=== PATIENT | female | born 1950 | race Caucasian/White ===

== ENCOUNTER 2016-02-07 09:15 | Outpatient (RCR) | payer MEDICARE, MEDICAID ==
--- OUTSIDE RECORDS SUMMARY | 2015-11-12 10:31 | XMS REPORT | Continuity of Care Document ---
Author Author [facility] Organization [facility] Address Unknown Phone Unavailable Care Team Providers Care School Counsellor Name Role Phone Coral Viveros PCP [phone] Source Comments Some departments are not documenting in the electronic medical record. If you do not see the information that you expected, contact Release of Information in the Health Information Management department at [phone] for further assistance in locating additional records.[facility] Active Allergies and Adverse Reactions No Known Allergies Current Medications Prescription Sig. Disp. Refills Start End Date Status Date metFORMIN (GLUCOPHAGE) Take 850 mg by mouth Active 850 mg tablet twice daily with meals. glipiZIDE (GLUCOTROL) 10 Take 10 mg by mouth twice Active mg tablet daily with meals. lisinopril/hydrochlorothi Take 1 Tab by mouth Active azide (ZESTORETIC) daily. 10/12.5 mg tablet 1 Tab tiotropium (SPIRIVA) 18 Inhale 18 mcg by mouth Active mcg capsule for inhaler daily. albuterol (VENTOLIN HFA, Inhale 2 Puffs by mouth Active PROAIR HFA) 90 every 4 hours as needed. mcg/actuation inhaler albuterol-ipratropium Inhale 3 mL solution as Active (DUO-NEB, DUO-VENT) 0.5 directed every 4 hours as mg-3 mg(2.5 mg base)/3 mL needed. nebulizer solution ferrous sulfate 325 mg Take 1 Tab by mouth twice 90 Tab 3 12/30/19 Active (65 mg iron) tablet daily. 13 docusate (COLACE) 100 mg Take 1 Cap by mouth twice 180 Cap 1 12/30/19 Active capsule daily. 13 ascorbic acid (VITAMIN-C) Take 1 Tab by mouth 90 Tab 1 12/30/19 Active 500 mg tablet daily. 13 MULTIVITAMIN PO Take 1 Tab by mouth Active daily. Active Problems Problem Noted Date Fatigue 08/26/2013 Diabetes mellitus, type II (HCC) 08/26/2013 Hypertension 01/01/2013 Anemia 12/28/2012 Diabetic foot ulcer (HCC) 12/05/2011 Diabetic neuropathy, type II diabetes mellitus (HCC) 12/05/2011 Tobacco dependence 12/05/2011 Edema of lower extremity 12/05/2011 Social History Tobacco Use Types Packs/Day Years Used Date Current Every Day Smoker Cigarettes 2 50 Tobacco Cessation: Ready to Quit: No Comments: Offered Nicotene patch--pt states she will think about it. Alcohol Use Drinks/Week oz/Week Comments No Last Filed Vital Signs Vital Sign Reading Time Taken Blood Pressure 167/72 08/28/2013 12:00 PM CDT Pulse 111 08/28/2013 12:00 PM CDT Temperature 36.9 C (98.4 F) 08/28/2013 11:46 AM CDT Respiratory Rate - - Height 1.473 m (4' 10") 08/26/2013 8:43 PM CDT Weight 70.308 kg (155 lb) 08/28/2013 2:21 AM CDT Body Mass Index 32.4 08/28/2013 2:21 AM CDT Oxygen Saturation 100% 08/28/2013 11:46 AM CDT Plan of Care Health Maintenance Due Date Last Done Comments Physical (Comprehensive) 1957 Exam Pertussis Vaccine 1961 Tetanus Vaccine 1967 Dilated Eye Exam 01/29/1968 Foot Exam 01/29/1968 Microalbumin 01/29/1968 Breast Cancer Screening 1990 Colorectal Cancer 01/29/2000 Screening Shingles Vaccine 2010 Hba1c 02/28/2014 08/28/2013, 12/28/2012, 12/06/2011 Additional history exists Osteoporosis Screening 2015 Prevnar/Pneumovax (#1) 2015 Influenza Vaccine 10/11/2015 Results from Last 3 Months Not on file
== END 2016-02-10 | disposition home or self-care (01) ==
LOC: WOUNDCARE 09:15
PROVIDERS: ATTEND Internal Medicine
DX: E11.621 Type 2 diabetes mellitus with foot ulcer (principal); L97.522 Non-pressure chronic ulcer of other part of left foot with fat layer exposed; L97.512 Non-pressure chronic ulcer of other part of right foot with fat layer exposed; L97.521 Non-pressure chronic ulcer of other part of left foot limited to breakdown of skin; Z72.0 Tobacco use
CPT/HCPCS: 11042; 15271; 15275; 29445; 87070; 87075; 87077; 87186; 87205; 99212; 99213

== ENCOUNTER 2016-02-12 20:06 | Inpatient (IN) | payer MEDICAID, MEDICARE ==
[~2016-02-12] VITALS: Ht 147.3 cm; Wt 62.1 kg
--- OUTSIDE RECORDS SUMMARY | 2016-02-12 20:10 | XMS REPORT | Continuity of Care Document ---
Author Author [facility] Organization [facility] Address Unknown Phone Unavailable Care Team Providers Care Title Abstractor Name Role Phone Coral Viveros PCP [phone] Source Comments Some departments are not documenting in the electronic medical record. If you do not see the information that you expected, contact Release of Information in the Health Information Management department at [phone] for further assistance in locating additional records.[facility] Active Allergies and Adverse Reactions No [...]
[2016-02-12 20:28] LABS: BASOPHILS % (AUTO) 0 % (0-10); EOSINOPHILS # (AUTO) 0.1 10^3/uL (0.0-0.3); EOSINOPHILS % (AUTO) 2 % (0-10); LYMPHOCYTES # (AUTO) 1.7 X 10^3 (1.0-4.0); LYMPHOCYTES % (AUTO) 30 % (12-44); MEAN CORPUSCULAR HEMOGLOBIN 28 PG (25-34); MEAN CORPUSCULAR HGB CONC 34 G/DL (32-36); MEAN CORPUSCULAR VOLUME 84 FL (80-99); MONOCYTES # (AUTO) 0.4 X 10^3 (0.0-1.0); MONOCYTES % (AUTO) 8 % (0-12); NEUTROPHILS # (AUTO) 3.5 X 10^3 (1.8-7.8); NEUTROPHILS % (AUTO) 61 % (42-75); PLATELET COUNT 215 10^3/uL (130-400); RED CELL DISTRIBUTION WIDTH 14.9 % (10.0-14.5); WHITE BLOOD COUNT 5.8 10^3/uL (4.3-11.0)
[2016-02-12 20:42] LABS: ALBUMIN 3.7 G/DL (3.2-4.5); BILIRUBIN,TOTAL 0.1 MG/DL (0.1-1.0); CREATININE SERUM 3.12 MG/DL (0.60-1.30); MAGNESIUM 1.8 MG/DL (1.8-2.4); POTASSIUM 4.7 MMOL/L (3.6-5.0); TOTAL PROTEIN 6.9 G/DL (6.4-8.2)
--- NOTE | 2016-02-12 20:45 | Diagnostic Imaging Report ---
INDICATION: Hypoglycemia COMPARISON: 10/30/2015 FINDINGS: Two views of the chest were obtained. Heart size is normal. The pulmonary vessels appear unremarkable. There is no pneumothorax, mediastinal widening or pleural fluid demonstrated. Some patchy scarring at the right lung base appears similar to the prior exam. There is, however, some increased density in medial right lung base which is new and may represent some infiltrate. The left lung appears clear. The osseous structures appear unremarkable. IMPRESSION: Suspected developing infiltrate at the right lung base superimposed on some chronic scarring. Short-term followup study is recommended. Dictated by: Dictated on workstation # [id number]
[2016-02-12] MEDS ORDERED: cefTRIAXone INJECTION 1,000 MG in NORMAL SALINE (BAXTER MINI) 50 ML IV ONE (21:15)
[2016-02-12] MEDS ORDERED: 1/2 NS IV SOLUTION 1,000 ML IV ONE (22:24)
[2016-02-12 22:25] VITALS: BP 125/72
[2016-02-12] MEDS: 1/2 NS IV SOLUTION 1,000 ML IV SCH (22:25)
[2016-02-12] MEDS ORDERED: AZITHROMYCIN 500 MG/NS 250 ML IVPB (1 X DOSE) IV NR ×2 (23:42)
[2016-02-13] MEDS ORDERED: RT-ALBUTEROL/IPRATROPIUM 3 ML (DUONEB) VIAL INH PRN (00:15)
[2016-02-13 00:27] VITALS: BP 124/60
[2016-02-13 01:58] VITALS: BP 116/56
[2016-02-13 01:58] LABS: BILIRUBIN,URINE NEGATIVE (NEGATIVE); KETONES,URINE NEGATIVE (NEGATIVE); LEUKOCYTE ESTERASE ,URINE 1+ (NEGATIVE); NITRITE,URINE NEGATIVE (NEGATIVE); PH,URINE 5 (5-9); PROTEIN,URINE 3+ (NEGATIVE); UROBILINOGEN,URINE NORMAL (NORMAL)
[2016-02-13] MEDS ORDERED: DEXTROSE 50% 50 ML (IMS) SYR ONE (03:15)
--- NOTE | 2016-02-13 03:24 | ED General ---
General Chief Complaint: Glucose Problems Stated Complaint: R SIDE PNEUMONIA,DIABETIC FOOT ULCERS,DEHYDRATION Nursing Triage Note: PT BROUGHT IN BY [facility] WITH C/O HYPOGLYCEMIA. PT WAS FOUND AT HOME WITH BS OF 44. 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 UPON ARRIVAL TO ED, PT IS A&0 X 4. Nursing Sepsis Screen: No Definite Risk Source of Information: Patient (VERY LIMITED HISTORIAN), EMS History of Present Illness Time Seen by Provider: 20:11 Initial Comments PT ARRIVES VIA EMS FROM HOME--PT APPARENTLY HAD SOME DECREASED LEVEL OF CONSCIOUSNESS PT WAS FOUND TO HAVE LOW BLOOD GLUCOSE AT HOME--WAS 61, THEN GIVEN ORAL GLUCOSE , RECHECK WAS 58, GIVEN ANOTHER ORAL GLUCOSE, RECHECK WAS 48 AND THEN 44, GIVEN 1 AMP D50. RECHECK WAS 301 PT STATES HER BLOOD SUGAR WAS "LOW" TODAY, SO DID NOT TAKE HER DIABETIC MEDICATION UNTIL THIS AFTERNOON. PT HAS NO IDEA WHAT HER BLOOD SUGAR READINGS WERE NO CHEST PAIN OR SHORTNESS OF BREATH NO NAUSEA/VOMITING/DIARRHEA/ABDOMINAL PAIN NO URINARY SYMPTOMS DENIES RECENT ILLNESS OR FEVER. PCP: CORINNE KRAUS Allergies and Home Medications Allergies Coded Allergies: No Known Drug Allergies (Unverified , 10/30/15) Constitutional: see HPI EENTM: no symptoms reported Respiratory: no symptoms reported Cardiovascular: no symptoms reported Gastrointestinal: no symptoms reported Genitourinary: no symptoms reported Musculoskeletal: no symptoms reported Skin: no symptoms reported Psychiatric/Neurological: No Symptoms Reported Hematologic/Lymphatic: No Symptoms Reported Immunological/Allergic: no symptoms reported Past Knrjbwa-Iocrdj-Opzzis Hx Patient Social History Alcohol Use: Denies Use Recreational Drug Use: No Smoking Status: Current Everyday Smoker (1 /2 PPD) Type Used: Cigarettes Recent Foreign Travel: No Contact w/Someone Who Travel: No Recent Infectious Disease Expo: No Recent Hopitalizations: No Physical Abuse Screen: No Sexual Abuse: No Seasonal Allergies Seasonal Allergies: No Surgeries HX Surgeries: No Respiratory Hx Respiratory Disorders: Yes (COPD) Respiratory Disorders: Pneumonia, COPD Cardiovascular Hx Cardiac Disorders: No Neurological Hx Neurological Disorders: No Reproductive System Sexually Transmitted Disease: No HIV/AIDS: No Genitourinary Hx Genitourinary Disorders: No Gastrointestinal Hx Gastrointestinal Disorders: No Musculoskeletal Hx Musculoskeletal Disorders: No Endocrine Hx Endocrine Disorders: Yes Endocrine Disorders: Diabetes, Non-Insulin dep HEENT HX ENT Disorders: No Loss of Vision: Denies Hearing Impairment: Denies Cancer Hx Cancer: No Psychosocial Hx Psychiatric Problems: Yes Behavioral Health Disorders: Depression Integumentary HX Skin/Integumentary Disorder: Yes (FOOT WOUNDS--IS BEING SEEN AT WOUND CARE ONCE A WEEK) Blood Transfusions Hx Blood Disorders: Yes (ANEMIA--S/P TRANSFUSIONS) Physical Exam Vital Signs Vital Sign - Last 12Hours 02/12/16 20:10 Temp 96.4 Pulse 98 Resp 20 B/P 113/49 Pulse Ox 97 O2 Delivery Room Air Capillary Refill : Less Than 3 Seconds General Appearance: No Apparent Distress WD/WN Other (SLOW MENTATION, POOR MEMORY. REEKS OF CIGARETTES. ) HEENT: PERRL/EOMI Other (ORAL MUCOSA DRY) Neck: Full Range of Motion Normal Inspection Non Tender Supple Respiratory: No Accessory Muscle Use No Respiratory Distress Wheezing ( EXPIRATORY WHEEZING RIGHT > LEFT) Cardiovascular: Regular Rate, Rhythm No Edema No JVD No Murmur Normal Peripheral Pulses Gastrointestinal: Normal Bowel Sounds No Organomegaly No Pulsatile Mass Non Tender Soft Back: No CVA Tenderness Extremity: Normal Range of Motion No Pedal Edema Other (ULCERS ON MEDIAL ASPECT OF RIGHT GREAT TOE AND PLANTAR ASPECT OF LEFT FOOT AT BASE OF FIRST MTP JOINT. ) Neurologic/Psychiatric: Alert Oriented x3 No Motor/Sensory Deficits rice cleaning machine tender II- XII Norm as Tested Other (MENTATION ABOVE) Skin: Normal Color Warm/Dry Other (FOOT ULCERS ABOVE) Progress/Results/Core Measures Results/Orders Lab Results Laboratory Tests Test 02/12/16 20:13 02/12/16 20:15 02/12/16 20:46 02/13/16 01:50 Range/Units Glucometer 175 H 97 70-110 MG/DL Alanine Aminotransferase (ALT/SGPT) 14 0-55 U/L Albumin 3.7 3.2-4.5 G/DL Alkaline Phosphatase 70 40-136 U/L Amylase Level 95 25-125 U/L Anion Gap 11 5-14 MMOL/L Aspartate Amino Transf (AST/SGOT) 19 5-34 U/L BUN/Creatinine Ratio 12 Basophils # (Auto) 0.0 0.0-0.1 10^3/uL Basophils (%) (Auto) 0 0-10 % Blood Urea Nitrogen 36 H 7-18 MG/DL Calcium Level 9.0 8.5-10.1 MG/DL Carbon Dioxide Level 15 L 21-32 MMOL/L Chloride Level 110 H 98-107 MMOL/L Creatinine 3.12 H 0.60-1.30 MG/DL Eosinophils # (Auto) 0.1 0.0-0.3 10^3/uL Eosinophils (%) (Auto) 2 0-10 % Estimat Glomerular Filtration Rate 15 Glucose Level 169 H 70-105 MG/DL Hematocrit 25 L 35-52 % Hemoglobin 8.4 L 11.5-16.0 G/DL Lipase 99 H 8-78 U/L Lymphocytes # (Auto) 1.7 1.0-4.0 X 10^3 Lymphocytes (%) (Auto) 30 12-44 % Magnesium Level 1.8 1.8-2.4 MG/DL Mean Corpuscular Hemoglobin 28 25-34 PG Mean Corpuscular Hemoglobin Concent 34 32-36 G/DL Mean Corpuscular Volume 84 80-99 FL Mean Platelet Volume 9.0 7.4-10.4 FL Monocytes # (Auto) 0.4 0.0-1.0 X 10^3 Monocytes (%) (Auto) 8 0-12 % Neutrophils # (Auto) 3.5 1.8-7.8 X 10^3 Neutrophils (%) (Auto) 61 42-75 % Platelet Count 215 130-400 10^3/uL Potassium Level 4.7 3.6-5.0 MMOL/L Red Blood Count 3.00 L 4.35-5.85 10^6/uL Red Cell Distribution Width 14.9 H 10.0-14.5 % Sodium Level 136 135-145 MMOL/L TSH [place] Testing 1.38 0.35-4.94 UIU/ML Total Bilirubin 0.1 0.1-1.0 MG/DL Total Protein 6.9 6.4-8.2 G/DL White Blood Count 5.8 4.3-11.0 10^3/uL Urine Bacteria FEW H /HPF Urine Bilirubin NEGATIVE NEGATIVE Urine Casts NONE /LPF Urine Clarity CLEAR Urine Color YELLOW Urine Crystals NONE /LPF Urine Culture Indicated YES Urine Glucose (UA) NEGATIVE NEGATIVE Urine Ketones NEGATIVE NEGATIVE Urine Leukocyte Esterase 1+ H NEGATIVE Urine Mucus NEGATIVE /LPF Urine Nitrite NEGATIVE NEGATIVE Urine Protein 3+ H NEGATIVE Urine RBC NONE /HPF Urine RBC (Auto) 1+ H NEGATIVE Urine Specific [place] 1.020 1.016-1.022 Urine Squamous Epithelial Cells 2-5 /HPF Urine Urobilinogen NORMAL NORMAL MG/DL Urine WBC 10-25 H /HPF Urine pH 5 5-9 My Orders Orders-JOSHKVNG Naik DO Accucheck Stat ONCE (02/12/16 20:19) Saline Lock/Iv-Start (02/12/16 20:19) Amylase (02/12/16 20:19) Cbc With Automated Diff (02/12/16 20:19) Comprehensive Metabolic Panel (02/12/16 20:19) Lipase (02/12/16 20:19) Magnesium (02/12/16 20:19) Thyroid Analyzer (02/12/16 20:19) Chest Pa/Lat (2 View) (02/12/16 20:19) Accucheck Stat ONCE (02/12/16 20:44) Ceftriaxone Injection (Rocephin Injectio (02/12/16 21:15) Medications Given in ED Current Medications Medications Dose Ordered Sig/Savi Route Start Time Stop Time Status Last Admin Dose Admin Ceftriaxone Sodium/Sodium Chloride 50 ml @ 100 mls/hr ONCE ONCE IV 02/12/16 21:15 02/12/16 21:44 DC 02/12/16 21:42 100 MLS/HR Vital Signs/I&O Vital Sign - Last 12Hours 02/12/16 02/12/16 02/12/16 02/12/16 20:10 22:08 22:25 22:25 Temp 96.4 96.4 96.2 Pulse 98 95 90 Resp 20 16 22 B/P 113/49 125/72 Pulse Ox 97 97 100 O2 Delivery Room Air Room Air Room Air Room Air 02/12/16 02/12/16 02/13/16 02/13/16 23:40 23:40 00:11 00:27 Temp 97.8 Pulse 84 84 Resp 20 B/P 124/60 Pulse Ox 97 97 96 O2 Delivery Room Air Room Air 02/13/16 02/13/16 01:00 01:58 Temp 97.0 Pulse 83 88 Resp 20 B/P 116/56 Pulse Ox 96 O2 Delivery Room Air Blood Pressure Mean: 76 Point of Care Testing Finger Stick Blood Glucose: 97 Diagnostic Imaging Comments CXR--INFILTRATE RIGHT BASE/MID LUNG--PER RADIOLOGIST REPORT Reviewed: Reviewed by Me Departure Communication Progress Notes 2057--SPOKE WITH DR. CADENA, ACCEPTS PT FOR ADMIT. Impression Impression: Primary Impression: Hypoglycemia associated with diabetes Additional Impressions: RLL pneumonia Acute on chronic renal failure Chronic anemia UTI (urinary tract infection) Disposition: ADMITTED INPATIENT Condition: Improved Decision to Admit Reason: Admit from ER (General) Decision to Admit/Date: Feb 12, 2016 Time/Decision to Admit Time: 21:00 Departure-Patient Inst. Referrals: JACLYN KAPADIA DO (PCP) Primary Care Physician KVNG MORENO DO Feb 13, 2016 03:24
[2016-02-13 05:15] VITALS: BP 143/65
[2016-02-13 05:49] LABS: BASOPHILS % (AUTO) 0 % (0-10); EOSINOPHILS # (AUTO) 0.1 10^3/uL (0.0-0.3); EOSINOPHILS % (AUTO) 1 % (0-10); LYMPHOCYTES # (AUTO) 1.3 X 10^3 (1.0-4.0); LYMPHOCYTES % (AUTO) 27 % (12-44); MEAN CORPUSCULAR HEMOGLOBIN 27 PG (25-34); MEAN CORPUSCULAR HGB CONC 33 G/DL (32-36); MEAN CORPUSCULAR VOLUME 84 FL (80-99); MEAN PLATELET VOLUME 9.2 FL (7.4-10.4); MONOCYTES # (AUTO) 0.3 X 10^3 (0.0-1.0); MONOCYTES % (AUTO) 7 % (0-12); NEUTROPHILS % (AUTO) 64 % (42-75); PLATELET COUNT 197 10^3/uL (130-400); RED BLOOD COUNT 2.78 10^6/uL (4.35-5.85); RED CELL DISTRIBUTION WIDTH 14.9 % (10.0-14.5); WHITE BLOOD COUNT 4.6 10^3/uL (4.3-11.0)
[2016-02-13] MEDS: inSUlin (REGULAR) HUMAN 1 UNIT/0.01 ML (CHARGE PER UNIT) SC SCH ×2 (06:00→11:00)
[2016-02-13 06:08] LABS: ALBUMIN 3.4 G/DL (3.2-4.5); BILIRUBIN,TOTAL 0.1 MG/DL (0.1-1.0); CALCIUM 8.6 MG/DL (8.5-10.1); CREATININE SERUM 2.72 MG/DL (0.60-1.30); POTASSIUM 5.9 MMOL/L (3.6-5.0); TOTAL PROTEIN 6.4 G/DL (6.4-8.2)
[2016-02-13] MEDS: RT-ALBUTEROL/IPRATROPIUM 3 ML (DUONEB) VIAL INH SCH ×2 (07:00→10:36)
[2016-02-13] MEDS ORDERED: FLU TRIvalent (5 YOA+) 2016-17 (AFLURIA) 0.5 ML IM ONE ×2 (07:15→10:36)
[2016-02-13 07:22] VITALS: BP 180/94
[2016-02-13] MEDS ORDERED: SULF-222 PO (08:30)
[2016-02-13] MEDS ORDERED: DOXY100T2 PO (08:30)
[2016-02-13] MEDS ORDERED: AZITHROMYCIN 250 MG TAB (ZITHROMAX) PO SCH (09:00)
[2016-02-13] MEDS ORDERED: NICOTINE 21 MG (NICODERM) PATCH TD SCH (09:00)
[2016-02-13] MEDS ORDERED: LISI1TAB6 PO (09:32)
[2016-02-13] MEDS ORDERED: METF850T2 PO (09:32)
[2016-02-13] MEDS ORDERED: ASCO-262 PO (09:32)
[2016-02-13] MEDS ORDERED: GLIP10TA13 PO (09:32)
[2016-02-13] MEDS ORDERED: FERR-84 PO (09:32)
[2016-02-13] MEDS: 1/2 NS IV SOLUTION 1,000 ML IV SCH (10:41)
[2016-02-13 12:00] VITALS: BP 153/74
--- NOTE | 2016-02-13 13:13 | Discharge Instructions ---
Discharge Inst-[facility] Discharge Medications New, Converted or Re-Newed RX: Other (no new meds) Continued Medications: Ascorbate Calcium (Vitamin C) 500 Mg Tablet 500 MG PO DAILY TAB Doxycycline Hyclate (Doxycycline Hyclate) 100 Mg Tablet 100 MG PO BID 14 DAY THERAPY FILLED 01-29-16 Days 14 TAB Ferrous Sulfate (Iron) 325 Mg Tablet 325 MG PO DAILY TAB Lisinopril/Hydrochlorothiazide (Lisinopril-Hctz 10-12.5 mg Tab) 1 Each Tablet 1 TAB PO DAILY TAB Metformin HCl (Metformin HCl) 850 Mg Tablet 850 MG PO BID TAB Sulfamethoxazole/Trimethoprim (Sulfamethoxazole-Tmp Ds Tablet) 1 Each Tablet 1 TAB PO BID 14 DAY THERAPY FILLED 01-29-16 Days 14 TAB Discontinued Medications: Glipizide (Glipizide) 10 Mg Tablet 10 MG PO BID TAB Patient Instructions Goal/Follow Up Appt: - You have a follow up appt on Feb 20 @ 1220 with your PCP Richy at [facility] Patient Instructions: - I have stopped one of your diabetes medications because of your low blood sugars. - Make sure to have frequent snacks and check your blood sugars if you start having symptoms of low blood sugar Return to The Hospital For: Low blood sugar that does not improve with eating Altered mental status Chest pain Shortness of breath Activity & Diet Discharge Diet: ADA Diet, Cardiac Diet Activity as Tolerated: Yes Copy Copies To 1: Richy SANCHEZ HOLLY R MD Feb 13, 2016 13:13
--- NOTE | 2016-02-13 13:16 | Short Stay Summary ---
HPI History of Present Illness: 66 yo F that was brought in by EMS for altered mental status and blood sugar in 40-60s that required multiple Amps of D50 to improve. Patient states today that she had noticed her blood sugar had been running low yesterday and so she did not take her pills in the AM and took them in the afternoon without checking her sugar. She has been on antibiotics for foot wounds and follows with outpatient wound clinic 1 time per week. She denies any cough, fever or chills. She states that she is ready to go home today because she is feeling better. Discussed the importance of checking her blood sugar and when to hold her medication and call the clinic for advice. Source: patient, RN/MD, old records Exam Limitations: no limitations Date seen by provider: Feb 13, 2016 Attending Physician Sharon Galan MD PCP Rosalba Miranda DO Consult Date of Admission Feb 12, 2016 at 21:49 Home Medications Home Medications Reviewed patient Home Medication Reconciliation Form Allergies Coded Allergies: No Known Drug Allergies (Unverified , 10/30/15) [id number]-[id number]-Gibyfh Hx Patient Social History Living Status: Lives in a home with her boyfriend Alcohol Use: Denies Use Recreational Drug Use: No Smoking Status: Current Everyday Smoker (1 02/10 PPD) Type Used: Cigarettes Recent Foreign Travel: No Contact w/other who traveled: No Recent Hopitalizations: No Recent Infectious Disease Expo: No Physical Abuse Screen: No Sexual Abuse: No Past Medical History Non Insulin Dependent DM Diabetic Foot wounds Chronic Kidney Disease HTN Tobacco Abuse Review of Systems ([facility]) Constitutional: no symptoms reportedNo chills, No fever, No weakness EENTM: no symptoms reportedNo blurred vision, No double vision Respiratory: cough (chronic)No dyspnea on exertion, No hemoptysis, No short of breath, No wheezing Cardiovascular: no symptoms reportedNo chest pain, No edema, No palpitations, No syncope Gastrointestinal: no symptoms reportedNo abdominal pain, No constipation, No diarrhea, No nausea, No vomiting Genitourinary: no symptoms reportedNo dysuria, No frequency, No hematuria : No Musculoskeletal: back pain (chronic no change)No joint pain, No muscle pain Skin: other (Wounds on both feet) Psychiatric/Neurological: No Symptoms Reported Reviewed Test Results Reviewed Test Results Lab Laboratory Tests Test 02/12/16 20:13 02/12/16 20:15 02/12/16 20:46 02/13/16 01:50 Range/Units Glucometer 175 H 97 70-110 MG/DL Alanine Aminotransferase (ALT/SGPT) 14 0-55 U/L Albumin 3.7 3.2-4.5 G/DL Alkaline Phosphatase 70 40-136 U/L Amylase Level 95 25-125 U/L Anion Gap 11 5-14 MMOL/L Aspartate Amino Transf (AST/SGOT) 19 5-34 U/L BUN/Creatinine Ratio 12 Basophils # (Auto) 0.0 0.0-0.1 10^3/uL Basophils (%) (Auto) 0 0-10 % Blood Urea Nitrogen 36 H 7-18 MG/DL Calcium Level 9.0 8.5-10.1 MG/DL Carbon Dioxide Level 15 L 21-32 MMOL/L Chloride Level 110 H 98-107 MMOL/L Creatinine 3.12 H 0.60-1.30 MG/DL Eosinophils # (Auto) 0.1 0.0-0.3 10^3/uL Eosinophils (%) (Auto) 2 0-10 % Estimat Glomerular Filtration Rate 15 Glucose Level 169 H 70-105 MG/DL Hematocrit 25 L 35-52 % Hemoglobin 8.4 L 11.5-16.0 G/DL Lipase 99 H 8-78 U/L Lymphocytes # (Auto) 1.7 1.0-4.0 X 10^3 Lymphocytes (%) (Auto) 30 12-44 % Magnesium Level 1.8 1.8-2.4 MG/DL Mean Corpuscular Hemoglobin 28 25-34 PG Mean Corpuscular Hemoglobin Concent 34 32-36 G/DL Mean Corpuscular Volume 84 80-99 FL Mean Platelet Volume 9.0 7.4-10.4 FL Monocytes # (Auto) 0.4 0.0-1.0 X 10^3 Monocytes (%) (Auto) 8 0-12 % Neutrophils # (Auto) 3.5 1.8-7.8 X 10^3 Neutrophils (%) (Auto) 61 42-75 % Platelet Count 215 130-400 10^3/uL Potassium Level 4.7 3.6-5.0 MMOL/L Red Blood Count 3.00 L 4.35-5.85 10^6/uL Red Cell Distribution Width 14.9 H 10.0-14.5 % Sodium Level 136 135-145 MMOL/L TSH Flathead Testing 1.38 0.35-4.94 UIU/ML Total Bilirubin 0.1 0.1-1.0 MG/DL Total Protein 6.9 6.4-8.2 G/DL White Blood Count 5.8 4.3-11.0 10^3/uL Urine Bacteria FEW H /HPF Urine Bilirubin NEGATIVE NEGATIVE Urine Casts NONE /LPF Urine Clarity CLEAR Urine Color YELLOW Urine Crystals NONE /LPF Urine Culture Indicated YES Urine Glucose (UA) NEGATIVE NEGATIVE Urine Ketones NEGATIVE NEGATIVE Urine Leukocyte Esterase 1+ H NEGATIVE Urine Mucus NEGATIVE /LPF Urine Nitrite NEGATIVE NEGATIVE Urine Protein 3+ H NEGATIVE Urine RBC NONE /HPF Urine RBC (Auto) 1+ H NEGATIVE Urine Specific [place] 1.020 1.016-1.022 Urine Squamous Epithelial Cells 2-5 /HPF Urine Urobilinogen NORMAL NORMAL MG/DL Urine WBC 10-25 H /HPF Urine pH 5 5-9 Test 02/13/16 05:15 02/13/16 11:11 Range/Units Alanine Aminotransferase (ALT/SGPT) 14 0-55 U/L Albumin 3.4 3.2-4.5 G/DL Alkaline Phosphatase 69 40-136 U/L Anion Gap 9 5-14 MMOL/L Aspartate Amino Transf (AST/SGOT) 19 5-34 U/L BUN/Creatinine Ratio 13 Basophils # (Auto) 0.0 0.0-0.1 10^3/uL Basophils (%) (Auto) 0 0-10 % Blood Urea Nitrogen 36 H 7-18 MG/DL Calcium Level 8.6 8.5-10.1 MG/DL Carbon Dioxide Level 16 L 21-32 MMOL/L Chloride Level 109 H 98-107 MMOL/L Creatinine 2.72 H 0.60-1.30 MG/DL Eosinophils # (Auto) 0.1 0.0-0.3 10^3/uL Eosinophils (%) (Auto) 1 0-10 % Estimat Glomerular Filtration Rate 17 Glucose Level 143 H 70-105 MG/DL Hematocrit 23 L 35-52 % Hemoglobin 7.6 L 11.5-16.0 G/DL Lymphocytes # (Auto) 1.3 1.0-4.0 X 10^3 Lymphocytes (%) (Auto) 27 12-44 % Mean Corpuscular Hemoglobin 27 25-34 PG Mean Corpuscular Hemoglobin Concent 33 32-36 G/DL Mean Corpuscular Volume 84 80-99 FL Mean Platelet Volume 9.2 7.4-10.4 FL Monocytes # (Auto) 0.3 0.0-1.0 X 10^3 Monocytes (%) (Auto) 7 0-12 % Neutrophils # (Auto) 3.0 1.8-7.8 X 10^3 Neutrophils (%) (Auto) 64 42-75 % Platelet Count 197 130-400 10^3/uL Potassium Level 5.9 H 3.6-5.0 MMOL/L Red Blood Count 2.78 L 4.35-5.85 10^6/uL Red Cell Distribution Width 14.9 H 10.0-14.5 % Sodium Level 134 L 135-145 MMOL/L Total Bilirubin 0.1 0.1-1.0 MG/DL Total Protein 6.4 6.4-8.2 G/DL White Blood Count 4.6 4.3-11.0 10^3/uL Glucometer 86 70-110 MG/DL Radiology Date of Exam: 02/12/16 CHEST PA/LAT (2 VIEW) INDICATION: Hypoglycemia COMPARISON: 10/30/2015 FINDINGS: Two views of the chest were obtained. Heart size is normal. The pulmonary vessels appear unremarkable. There is no pneumothorax, mediastinal widening or pleural fluid demonstrated. Some patchy scarring at the right lung base appears similar to the prior exam. There is, however, some increased density in medial right lung base which is new and may represent some infiltrate. The left lung appears clear. The osseous structures appear unremarkable. IMPRESSION: Suspected developing infiltrate at the right lung base superimposed on some chronic scarring. Short-term followup study is recommended. Physical Exam-([facility]) Physical Exam Vital Signs VS - Last 72 Hours, by Label 02/12/16 02/12/16 02/12/16 02/12/16 20:10 22:08 22:25 22:25 Temp 96.4 96.4 96.2 Pulse 98 95 90 Resp 20 16 22 B/P 113/49 125/72 Pulse Ox 97 97 100 O2 Delivery Room Air Room Air Room Air Room Air 02/12/16 02/12/16 02/13/16 02/13/16 23:40 23:40 00:11 00:27 Temp 97.8 Pulse 84 84 Resp 20 B/P 124/60 Pulse Ox 97 97 96 O2 Delivery Room Air Room Air 02/13/16 02/13/16 02/13/16 02/13/16 01:00 01:58 05:15 07:00 Temp 97.0 97.9 Pulse 83 88 91 86 Resp 20 22 B/P 116/56 143/65 Pulse Ox 96 97 O2 Delivery Room Air Room Air 02/13/16 02/13/16 02/13/16 02/13/16 07:02 07:22 09:00 10:38 Temp 99.5 Pulse 83 Resp 18 B/P 180/94 Pulse Ox 97 98 98 O2 Delivery Room Air Room Air Room Air Room Air 02/13/16 10:44 Temp 99.5 Capillary Refill : Less Than 3 Seconds General Appearance: WD/WN mild distress no apparent distress HEENT: PERRL/EOMI normal ENT inspection TMs normal pharynx normal Neck: non-tender full range of motion supple normal inspection Respiratory: chest non-tender lungs clear no respiratory distress no accessory muscle use rhonchiNo wheezing Cardiovascular: regular rate, rhythm no edema no gallop no JVD no murmur Gastrointestinal: normal bowel sounds non tender soft no organomegaly no pulsatile massNo guarding, No rebound, No hepatomegaly Extremities: normal range of motion non-tender no pedal edema no calf tenderness normal capillary refill Neurologic/Psychiatric: faculty research physician II-XII nml as tested no motor/sensory deficits alert normal mood/affect oriented x 3 Skin: other (2 wounds Present: Right plantar wound present at the base of the great toe. +erythema, mild purulent drainage, + neuropathy. Left: Medial aspect of great toe, + callus, mild erythema) Lymphatic: no adenopathy Short Stay Diagnosis Discharge Diagnosis-Short Stay Admission Diagnosis Altered Mental status Hypoglycemia Acute on Chronic Kidney Disease Normocytic Anemia Non Insulin Dependent DM: Uncontrolled Hypertension Bilateral diabetic foot wounds Final Discharge Diagnosis See Above Conclusion Plan 66 yo F that was send to ER with altered mental status found to have severe hypoglycemia in the 40s Plan: 1. Altered Mental status: Resolved this AM - Most likely caused by severe hypoglycemia, Patient took her medication after she knew her sugar had been running low - Discussed the importance of checking her sugar and when she gets a low number and is not sure what to do encouraged her to call clinic 2. Hypoglycemia - Will stop glipizide, Continue metformin if blood sugar is greater then 120 after meal 3. Acute on Chronic Kidney Disease - Trending down, patient is doing well with PO hydration, She does not want to stay in the hospital any longer - Discussed the risks of kidney failure 4. Normocytic Anemia: At patient's baseline 5. Non Insulin Dependent DM: Uncontrolled - Will need close follow up with blood sugars - DM nurse education received today 6. Hypertension: Controlled 7. Bilateral diabetic foot wounds - Continue current antibiotics and continue to follow up with wound care outpatient 8. Tobacco Abuse - Discussed the importance of cessation, patient is not ready to quit at this time Clinical Quality Measures DVT/VTE Risk/Contraindication: Risk Factor Score Per Nursin RFS Level Per Nursing on Admit: 4+=Very High Copy Copies To 1: Richy SANCHEZ HOLLY R MD Feb 13, 2016 13:15
[2016-02-13] MEDS ORDERED: PATCH REMOVAL TP SCH (21:00)
[2016-02-13] MEDS ORDERED: cefTRIAXone 1 GM/NS 50 ML IVPB IV SCH ×2 (21:00)
--- NOTE | 2016-02-15 11:08 | Physician Query-General Query ---
Physician Query-General Query to Physician: Per the ER physician: Diagnosis gave was UTI and Pneumonia. Should these diagnosis be included in the discharge summary? thank you PHYSICIAN RESPONSE: Based on the clinical findings in the record, please respond to the query above on this document as an addendum. Possible, probable, or questionable diagnosis can be coded for INPATIENTS ONLY. Physician Response: Physician Response 1. Patient did not have signs or symptoms of UTI: Culture reviewed today did not show any organisms 2.? Infiltrate on CXR: Patient has not had any worsening symptoms. Patient has chronic cough, no fever thus I did not continue PNA treatment If you have questions please contact: Acid Retort Operator: Ext: Thank you for your time and cooperation. Clinical Neonatal Critical Care Nurse/Acid Retort Operator This is a permanent part of the medical record CASS MEDEROS Feb 15, 2016 11:08 NEERAJ CADENA MD Feb 15, 2016 13:08
== END 2016-02-13 13:50 | disposition home or self-care (01) | DRG 639 ==
LOC: EDUNIT# 20:06 → ER 20:07 → 4TH 21:49
PROVIDERS: ADMIT Family Medicine; ATTEND Family Medicine
DX: E11.649 Type 2 diabetes mellitus with hypoglycemia without coma (principal); N17.9 Acute kidney failure, unspecified; E11.22 Type 2 diabetes mellitus with diabetic chronic kidney disease; I12.9 Hypertensive chronic kidney disease with stage 1 through stage 4 chronic kidney disease, or unspecified chronic kidney disease; N18.9 Chronic kidney disease, unspecified; D64.9 Anemia, unspecified; E11.65 Type 2 diabetes mellitus with hyperglycemia; E11.621 Type 2 diabetes mellitus with foot ulcer; L97.509 Non-pressure chronic ulcer of other part of unspecified foot with unspecified severity; L97.519 Non-pressure chronic ulcer of other part of right foot with unspecified severity; F17.210 Nicotine dependence, cigarettes, uncomplicated; J44.9 Chronic obstructive pulmonary disease, unspecified; Z23 Encounter for immunization
CPT/HCPCS: 36415; 71020; 80053; 81000; 82150; 82962; 83690; 83735; 84443; 85025; 87040; 87088; 94640; 94760; 96365

== ENCOUNTER → 2016-02-19 | Outpatient (CLI) | payer MEDICAID, MEDICARE ==
[~2016-02-19] MED LIST: ACET-2267 PO; ALBU2.5V4 NEB; ASCO-262 PO; ASCO10006 PO; CALC667C10 PO; CATHETER FLUSH 10 ML SYR IV PRN; DOCU-143 PO; DOXY100T2 PO; ESCI10TA PO; FERR-84 PO; FURO-124 PO; GLIP10TA13 PO; GUAI600T43 PO; INSU100V SQ; INSU100V5 SQ; LISI1TAB6 PO; MELA1TAB10 PO; METF850T2 PO; NORM2DIS3 IV; ONDN4T PO; POTA20PA28 PO; SILV400C23 TP; SIME80TA16 PO; SULF-222 PO; VANC750P4 IV; [UNRECOGNIZED DRUG - CODE] SC
--- OUTSIDE RECORDS SUMMARY | 2016-02-19 09:27 | XMS REPORT | Continuity of Care Document ---
Author Author [facility] Organization [facility] Address Unknown Phone Unavailable Care Team Providers Care Hand Compositor Name Role Phone Coral Viveros PCP [phone] Source Comments Some departments are not documenting in the electronic medical record. If you do not see the information that you expected, contact Release of Information in the Health Information Management department at [phone] for further assistance in locating additional records.[facility] Active Allergies and Adverse Reactions No [...]
--- NOTE | 2016-02-19 14:27 | Diagnostic Imaging Report ---
EXAMINATION: Three-phase bone scan. INDICATION: Nonpressure chronic ulcer of the foot. The patient has an open ulcer on the right big toe area and left mid to upper foot region. TECHNIQUE: After the intravenous administration of 26 mCi of technetium 99m MDP, three-phase bone scanning was performed over both feet. FINDINGS: There is a only mild triphasic increased radiotracer uptake seen along the distal half of the right great toe. Delayed phase mild to moderate activity is seen in the mid and hindfoot, probably degenerative. In the left foot, there is no increased abnormal hyperemia suggested. Mild nonspecific increased activity on the blood pool and delayed phase imaging is noted in the great toe and mid foot. The intensity of the activity is relatively low and without significant hyperemia, findings in favor of degenerative changes. IMPRESSION: There are areas of relatively mild increased activity as described above favoring degenerative related changes. Correlate clinically. Dictated by: Dictated on workstation # [id number]
== END ==
LOC: CARD 09:23
PROVIDERS: ATTEND Internal Medicine
DX: E11.621 Type 2 diabetes mellitus with foot ulcer (principal); L97.522 Non-pressure chronic ulcer of other part of left foot with fat layer exposed; L97.512 Non-pressure chronic ulcer of other part of right foot with fat layer exposed; L97.521 Non-pressure chronic ulcer of other part of left foot limited to breakdown of skin; Z72.0 Tobacco use
CPT/HCPCS: 78315

== ENCOUNTER 2016-04-05 11:23 | Emergency (ER) | payer MEDICARE ==
[~2016-04-05] VITALS: Ht 147.3 cm; Wt 56.7 kg
[~2016-04-05 11:23] MED LIST changes: -ACET-2267 PO; -ALBU2.5V4 NEB; -ASCO10006 PO; -CALC667C10 PO; -CATHETER FLUSH 10 ML SYR IV PRN; -DOCU-143 PO; -ESCI10TA PO; -FURO-124 PO; -GUAI600T43 PO; -INSU100V SQ; -INSU100V5 SQ; -MELA1TAB10 PO; -NORM2DIS3 IV; -ONDN4T PO; -POTA20PA28 PO; -SILV400C23 TP; -SIME80TA16 PO; -VANC750P4 IV; -[UNRECOGNIZED DRUG - CODE] SC
--- OUTSIDE RECORDS SUMMARY | 2016-04-05 11:29 | XMS REPORT | Continuity of Care Document ---
Author Author [facility] Organization [facility] Address Unknown Phone Unavailable Care Team Providers Care Camera Control Operator Name Role Phone Coral Viveros PCP [phone] Source Comments Some departments are not documenting in the electronic medical record. If you do not see the information that you expected, contact Release of Information in the Health Information Management department at [phone] for further assistance in locating additional records.[facility] Active Allergies and Adverse Reactions No [...]
--- NOTE | 2016-04-05 12:36 | ED General ---
General Stated Complaint: COUGHING Source of Information: Patient Exam Limitations: No Limitations History of Present Illness Time Seen by Provider: 12:35 Initial Comments To ER with a cough and generalized weakness for the past few days. She is a one to 2 pack per day smoker for many years. She contributes very minimally to her history of symptoms. reports that 2 days ago her blood pressure was hypertensive at 211 systolic and she has not been taking her blood pressure medications. For the past 24 hours complaining of diffuse back pain. She has burn camacho on her T-shirt from cigarettes. Blood pressure noted to be 71/46 on arrival. She does not have chest pain or shortness of breath. Timing/Duration: 1-2 Days Severity: Moderate Allergies and Home Medications Allergies Coded Allergies: No Known Drug Allergies (Unverified , 10/30/15) Home Medications Ascorbate Calcium 500 Mg Tablet 500 MG PO DAILY (Reported) Ferrous Sulfate 325 Mg Tablet 325 MG PO DAILY (Reported) Lisinopril/Hydrochlorothiazide 1 Each Tablet 1 TAB PO DAILY (Reported) Metformin HCl 850 Mg Tablet 850 MG PO BID (Reported) Constitutional: see HPINo chills, No fever EENTM: see HPI Respiratory: see HPI coughNo dyspnea on exertion, No short of breath Cardiovascular: no symptoms reportedNo chest pain, No edema, No palpitations, No syncope, No vascular heart diseas Genitourinary: no symptoms reported Musculoskeletal: no symptoms reported Skin: no symptoms reported Psychiatric/Neurological: No Symptoms Reported Hematologic/Lymphatic: No Symptoms Reported Past Kxhkjqb-Yczdvn-Qlnhrr Hx Patient Social History Type Used: Cigarettes Recent Foreign Travel: No Contact w/Someone Who Travel: No Recent Hopitalizations: No Seasonal Allergies Seasonal Allergies: No Surgeries HX Surgeries: No Respiratory Hx Respiratory Disorders: Yes (COPD) Respiratory Disorders: Pneumonia, COPD Cardiovascular Hx Cardiac Disorders: No Neurological Hx Neurological Disorders: No Reproductive System Sexually Transmitted Disease: No HIV/AIDS: No Genitourinary Hx Genitourinary Disorders: No Gastrointestinal Hx Gastrointestinal Disorders: No Musculoskeletal Hx Musculoskeletal Disorders: No Endocrine Hx Endocrine Disorders: Yes Endocrine Disorders: Diabetes, Non-Insulin dep HEENT HX ENT Disorders: No Loss of Vision: Denies Hearing Impairment: Denies Cancer Hx Cancer: No Psychosocial Hx Psychiatric Problems: Yes Behavioral Health Disorders: Depression Integumentary HX Skin/Integumentary Disorder: Yes (FOOT WOUNDS--IS BEING SEEN AT WOUND CARE ONCE A WEEK) Blood Transfusions Hx Blood Disorders: Yes (ANEMIA--S/P TRANSFUSIONS) Physical Exam Vital Signs Vital Sign - Last 12Hours 04/05/16 12:30 Temp 97.1 Pulse 87 Resp 22 B/P 71/44 Pulse Ox 96 O2 Delivery Room Air O2 Flow Rate 2 Capillary Refill : General Appearance: No Apparent Distress WD/WN Chronically ill Other (unkempt) Eyes: Bilateral Eye EOMI, Bilateral Eye Normal Inspection, Bilateral Eye PERRL HEENT: PERRL/EOMI TMs Normal Neck: Full Range of Motion Normal Inspection Respiratory: No Accessory Muscle Use No Respiratory Distress Decreased Breath SoundsNo Respiratory Distress Cardiovascular: Regular Rate, Rhythm Normal Peripheral Pulses Gastrointestinal: Normal Bowel Sounds Non Tender Soft Extremity: Normal Capillary Refill Neurologic/Psychiatric: Alert Oriented x3 No Motor/Sensory Deficits Skin: Normal Color Warm/Dry Progress/Results/Core Measures Results/Orders Lab Results Laboratory Tests Test 04/05/16 12:35 04/05/16 12:36 04/05/16 13:40 04/05/16 13:55 Range/Units Alanine Aminotransferase (ALT/SGPT) 12 0-55 U/L Albumin 3.2 3.2-4.5 G/DL Alkaline Phosphatase 85 40-136 U/L Anion Gap 22 H 5-14 MMOL/L Aspartate Amino Transf (AST/SGOT) 20 5-34 U/L BUN/Creatinine Ratio 14 Band Neutrophils 1 % Basophils # (Auto) 0.0 0.0-0.1 10^3/uL Basophils (%) (Auto) 0 0-10 % Blood Morphology Comment NORMAL Blood Urea Nitrogen 85 H 7-18 MG/DL Calcium Level 8.7 8.5-10.1 MG/DL Carbon Dioxide Level 9 *L 21-32 MMOL/L Chloride Level 96 L 98-107 MMOL/L Creatinine 6.27 H 0.60-1.30 MG/DL Eosinophils # (Auto) 0.0 0.0-0.3 10^3/uL Eosinophils (%) (Auto) 0 0-10 % Estimat Glomerular Filtration Rate 7 Glucose Level 154 H 70-105 MG/DL Hematocrit 27 L 35-52 % Hemoglobin 9.4 L 11.5-16.0 G/DL Lactic Acid Level 2.0 0.5-2.0 MMOL/L Lymphocytes # (Auto) 1.4 1.0-4.0 X 10^3 Lymphocytes % (Manual) 9 % Lymphocytes (%) (Auto) 5 L 12-44 % Mean Corpuscular Hemoglobin 28 25-34 PG Mean Corpuscular Hemoglobin Concent 35 32-36 G/DL Mean Corpuscular Volume 82 80-99 FL Mean Platelet Volume 10.2 7.4-10.4 FL Monocytes # (Auto) 1.5 H 0.0-1.0 X 10^3 Monocytes % (Manual) 10 % Monocytes (%) (Auto) 5 0-12 % Neutrophils # (Auto) 25.2 H 1.8-7.8 X 10^3 Neutrophils % (Manual) 80 % Neutrophils (%) (Auto) 90 H 42-75 % Platelet Count 256 130-400 10^3/uL Potassium Level 4.9 3.6-5.0 MMOL/L Red Blood Count 3.32 L 4.35-5.85 10^6/uL Red Cell Distribution Width 14.7 H 10.0-14.5 % Sodium Level 127 L 135-145 MMOL/L Total Bilirubin 0.7 0.1-1.0 MG/DL Total Protein 7.3 6.4-8.2 G/DL Toxic Granulation 1+ Troponin I < 0.30 <0.30 NG/ML White Blood Count 28.2 H 4.3-11.0 10^3/uL Glucometer 163 H 70-110 MG/DL Kelvin Test POSITIVE Arterial Blood Base Excess -17.9 L -2.5-2.5 MMOL/L Arterial Blood HCO3 9 *L 23-27 MMOL/L Arterial Blood Oxygen Saturation 96 94-100 % Arterial Blood Partial Pressure CO2 25 L 35-45 MMHG Arterial Blood Partial Pressure O2 84 79-93 MMHG Arterial Blood Total CO2 9.7 L 21.0-31.0 MMOL/L Arterial Blood pH 7.18 *L 7.37-7.43 Blood Gas Inspired Oxygen ROOM AIR Blood Gas Patient Temperature 97.9 Blood Gas Puncture Site LEFT RADIAL Blood Gas Ventilator Setting NO Urine Bacteria LARGE H /HPF Urine Bilirubin 1+ H NEGATIVE Urine Casts NONE /LPF Urine Clarity SLIGHTLY CLOUDY Urine Color YELLOW Urine Crystals NONE /LPF Urine Culture Indicated YES Urine Glucose (UA) 1+ H NEGATIVE Urine Ketones NEGATIVE NEGATIVE Urine Leukocyte Esterase 3+ H NEGATIVE Urine Mucus SMALL H /LPF Urine Nitrite NEGATIVE NEGATIVE Urine Protein 4+ NEGATIVE Urine RBC NONE /HPF Urine RBC (Auto) 2+ H NEGATIVE Urine Specific Paxton 1.010 L 1.016-1.022 Urine Squamous Epithelial Cells 2-5 /HPF Urine Urobilinogen NORMAL NORMAL MG/DL Urine WBC >100 H /HPF Urine pH 7 5-9 My Orders Orders-GRICELDA HERNANDEZ APRN Cbc With Automated Diff (04/05/16 12:31) Comprehensive Metabolic Panel (04/05/16 12:31) Ua Culture If Indicated (04/05/16 12:31) Saline Lock/Iv-Start (04/05/16 12:31) Blood Culture (04/05/16 12:31) Troponin I (04/05/16 12:31) Ekg Tracing (04/05/16 12:31) Chest 1 View, Ap/Pa Only (04/05/16 12:31) Lactic Acid Analyzer (04/05/16 12:31) Ns Iv 1000 Ml (Sodium Chloride 0.9%) (04/05/16 12:45) Aspirin Chewable Tablet (Baby Aspirin Ch (04/05/16 12:46) Aspirin Chewable Tablet (Baby Aspirin Ch (04/05/16 13:00) Ct Angio Chest/Abd (04/05/16 12:52) Iohexol Injection (Omnipaque 350 Mg/Ml 1 (04/05/16 13:00) Ns (Ivpb) (Sodium Chloride 0.9% Ivpb Bag (04/05/16 13:00) Manual Differential (04/05/16 12:35) Sodium Bicarbonate 8.4% Syr (Sodium Bica (04/05/16 13:30) D5w 1000 Ml Iv Solu... W/Sodium Bicarbon (04/05/16 13:45) Arterial Blood Gas (04/05/16 13:46) Piperacillin Sodium/Tazobactam (Zosyn Vi (04/05/16 14:00) Urine Culture (04/05/16 13:55) Ns Iv 1000 Ml (Sodium Chloride 0.9%) (04/05/16 14:45) Norepinephrine (Levophed) (04/05/16 14:53) D5w 250 Ml (Ivpb) (Dextrose 5% Water Iv (04/05/16 14:53) Medications Given in ED Current Medications Medications Dose Ordered Sig/Savi Route Start Time Stop Time Status Last Admin Dose Admin Aspirin 324 mg ONCE ONCE PO 04/05/16 13:00 04/05/16 13:01 DC 04/05/16 12:50 324 MG Iohexol 100 ml ONCE ONCE IV 04/05/16 13:00 04/05/16 13:01 DC 04/05/16 13:12 85 ML Piperacillin Sod/ Tazobactam Sod/ Sodium Chloride 100 ml @ 200 mls/hr ONCE ONCE IV 04/05/16 14:00 04/05/16 14:29 DC 04/05/16 14:19 200 MLS/HR Sodium Chloride 100 ml 100 ml ONCE ONCE IV 04/05/16 13:00 04/05/16 13:01 DC 04/05/16 12:35 100 ML Vital Signs/I&O Vital Sign - Last 12Hours 04/05/16 04/05/16 12:30 12:30 Temp 97.1 Pulse 87 Resp 22 B/P 71/44 Pulse Ox 96 O2 Delivery Room Air Nasal Cannula O2 Flow Rate 2 Diagnostic Imaging Diagonstic Imaging: CT Comments NAME: DUTCH OLIVA [facility] REC#: [id number] PT STATUS: REG ER : 1950 PHYSICIAN: GRICELDA HERNANDEZ APRN ADMIT DATE: 04/05/16/ER Draft Date of Exam:04/05/16 CT ANGIO CHEST/ABD PROCEDURE: CT angiography of the abdomen and chest with and without contrast. TECHNIQUE: After intravenous administration of contrast, thin section axial CT angiography of the abdomen and chest were obtained. Multiple MIP reformats were provided. INDICATION: Cough, weakness. There are no prior CT chest examinations available for comparison. FINDINGS: The plain examination of the chest performed on 02/12/2016 did suggest that there was pneumonia/atelectasis developing in the right lung base. On this exam, there now appear to be multiple nodular densities throughout the right lung. The largest of these is in the right upper lobe and measures approximately 1.5 x 2.0 cm. A few of these nodular densities appear to contain minute areas of cavitation and these findings could be secondary to septic emboli. The possibility that these are related to a fungal infection should also be considered. There are a few small nodular densities along the periphery of left upper lung and there is some atelectasis/infiltrate in the left lung base as well. There is no sign of pleural effusion. The heart is mildly enlarged and the heart does seem more prominent than noted on the prior exam. Furthermore, there is a pericardial effusion present. The effusion measures approximately 1.2 cm in maximum depth. There is no defect within the pulmonary arteries to indicate a pulmonary embolus. Aorta is not abnormally dilated. There is no sign of dissection. There are a few borderline enlarged mediastinal nodes. These are nonspecific in appearance. There is a roughly 1 cm low-density nodule in the left lobe of thyroid. This should be further evaluated by ultrasound. There is no obvious breast mass. The sections through the upper abdomen failed to show any sign of an acute abnormality. The liver is prominent and of lower density than usually seen. This appearance does suggest fatty metamorphosis. The spleen, pancreas, adrenals, kidneys, aorta and inferior vena cava are unremarkable for an acute abnormality. The gallbladder is distended but there is no sign of cholelithiasis or acute cholecystitis. The stomach is not well-distended and consequently difficult to assess. The bone windows show no evidence for a fracture or for a destructive lesion. IMPRESSION: 1. There are multiple pulmonary nodules, primarily on the right. A few of these do appear to contain minute areas of cavitation and these may represent septic emboli. An atypical inflammatory/infectious process could also present in this manner. A pulmonary consult would be recommended. 2. There is also some atelectasis/infiltrate in left lower lobe. 3. The heart is enlarged and there is a pericardial effusion. 4. There is no acute cardiopulmonary abnormality noted otherwise. In particular, there is no sign of a pulmonary embolus or dissection. The sections through the abdomen failed to show any sign of an acute abnormality. 5. The appearance of liver does suggest fatty metamorphosis. The gallbladder is distended but there is no evidence for acute cholecystitis. If further evaluation of the gallbladder is desired, then ultrasound would be recommended. Dictated on workstation # [id number] Dict: 04/05/16 1340 Trans: 04/05/16 1403 KB [id number] Interpreted by: JESSICA REYNOLDS MD Electronically signed by: Departure Communication Progress Notes 1400-Given the patient's presentation of hypertension a few days ago followed by current back pain and hypotension concern was for aortic dissection so CT angiogram was done before obtaining renal function. Her initial 2 EKGs are interpreted by the computer as acute myocardial infarction secondary to ST elevation in leads 1 and aVL V5 and V6. My supervising physician Dr. Contreras has looked at this and feels this is a questionable call. I have sent the images by text to Dr. Gonzales from cardiology who disagrees with ST elevation and would like to rule out dissection. Patient's CT and x-ray have been sent via cloud to [facility] . Further, a Dalton catheter was inserted and only 20 mL of urine was obtained after 2 L of IV fluids. Third liter infusing at 200 mL per hour as well as Zosyn and bicarbonate drip. Blood pressure is currently up to 95/63, heart rate 80s 1422-I spoke with hospitalist Dr. Clinton at [facility] who accepts the patient in transfer. [id number]-[id number] now here to transport. BP 102/56, HR 85 sinus. Impression Impression: Primary Impression: Acute on chronic renal failure Additional Impressions: Septic shock Urinary tract infection Disposition: 02 XFER SHT-[facility] Condition: Stable Departure-Patient Inst. Referrals: KAT WRIGHT (PCP) Primary Care Physician JACLYN KAPADIA DO (Family) Primary Care Physician GRICELDA HERNANDEZ APRN Apr 05, 2016 12:36
[2016-04-05] MEDS ORDERED: NS IV 1000 ML 1,000 ML IV SCH ×2 (12:45→14:45)
[2016-04-05 12:46] LABS: BASOPHILS % (AUTO) 0 % (0-10); EOSINOPHILS % (AUTO) 0 % (0-10); LYMPHOCYTES # (AUTO) 1.4 X 10^3 (1.0-4.0); LYMPHOCYTES % (AUTO) 5 % (12-44); MEAN CORPUSCULAR HEMOGLOBIN 28 PG (25-34); MEAN CORPUSCULAR HGB CONC 35 G/DL (32-36); MEAN CORPUSCULAR VOLUME 82 FL (80-99); MEAN PLATELET VOLUME 10.2 FL (7.4-10.4); MONOCYTES # (AUTO) 1.5 X 10^3 (0.0-1.0); MONOCYTES % (AUTO) 5 % (0-12); NEUTROPHILS # (AUTO) 25.2 X 10^3 (1.8-7.8); NEUTROPHILS % (AUTO) 90 % (42-75); PLATELET COUNT 256 10^3/uL (130-400); RED BLOOD COUNT 3.32 10^6/uL (4.35-5.85); RED CELL DISTRIBUTION WIDTH 14.7 % (10.0-14.5); WHITE BLOOD COUNT 28.2 10^3/uL (4.3-11.0)
[2016-04-05] MEDS ORDERED: ASPIRIN 81 MG CHEW (CHILDREN'S ASA) ONE (12:46)
[2016-04-05] MEDS ORDERED: NS 100 ML (IVPB) BAG IV ONE (13:00)
[2016-04-05] MEDS ORDERED: ASPIRIN 81 MG CHEW (CHILDREN'S ASA) PO ONE (13:00)
[2016-04-05] MEDS ORDERED: IOHEXOL 350 MG/ML 100 ML (OMNIPAQUE 350) VIAL IV ONE (13:00)
[2016-04-05 13:08] LABS: BILIRUBIN,TOTAL 0.7 MG/DL (0.1-1.0); BLOOD UREA NITROGEN 85 MG/DL (7-18); BUN/CREATININE RATIO 14; CALCIUM 8.7 MG/DL (8.5-10.1); CHLORIDE 96 MMOL/L (98-107); CREATININE SERUM 6.27 MG/DL (0.60-1.30); GFR ESTIMATED 7; GLUCOSE 154 MG/DL (70-105); POTASSIUM 4.9 MMOL/L (3.6-5.0); SODIUM 127 MMOL/L (135-145)
[2016-04-05 13:09] LABS: ALANINE AMINOTRANSFERASE 12 U/L (0-55); ALBUMIN 3.2 G/DL (3.2-4.5); ASPARTATE AMINO TRANSFERASE 20 U/L (5-34); TOTAL PROTEIN 7.3 G/DL (6.4-8.2)
[2016-04-05 13:11] LABS: ANION GAP 22 MMOL/L (5-14); CARBON DIOXIDE 9 MMOL/L (21-32)
[2016-04-05 13:16] LABS: TROPONIN I < 0.30 NG/ML (<0.30)
[2016-04-05 13:17] LABS: BAND NEUTROPHILS 1 %; LYMPHOCYTES % (MANUAL) 9 %; NEUTROPHILS % (MANUAL) 80 %
[2016-04-05] MEDS ORDERED: SODIUM BICARB 8.4% 50 MEQ/50 ML (ABBOTT) SYR IV ONE (13:30)
[2016-04-05] MEDS ORDERED: SODIUM BICARBONATE 8.4% VIAL 150 MEQ in D5W 1000 ML IV SOLUTION 1,000 ML IV SCH (13:45)
[2016-04-05 13:52] LABS: ABG BASE EXCESS -17.9 MMOL/L (-2.5-2.5); ABG OXYGEN SATURATION 96 % (94-100); ABG PCO2 25 MMHG (35-45); ABG PO2 84 MMHG (79-93); ABG TCO2 9.7 MMOL/L (21.0-31.0)
[2016-04-05 13:53] LABS: ABG HCO3 9 MMOL/L (23-27); ABG PH 7.18 (7.37-7.43)
[2016-04-05 13:54] LABS: ALLENS TEST POSITIVE; PATIENT TEMP 97.9
[2016-04-05] MEDS ORDERED: PIPERACILLIN SODIUM/TAZOBACTAM 4.5 GM in NS (IVPB) 100 ML IV ONE (14:00)
--- NOTE | 2016-04-05 14:04 | Diagnostic Imaging Report ---
PROCEDURE: CT angiography of the abdomen and chest with and without contrast. TECHNIQUE: After intravenous administration of contrast, thin section axial CT angiography of the abdomen and chest were obtained. Multiple MIP reformats were provided. INDICATION: Cough, weakness. There are no prior CT chest examinations available for comparison. FINDINGS: The plain examination of the chest performed on 02/12/2016 did suggest that there was pneumonia/atelectasis developing in the right lung base. On this exam, there now appear to be multiple nodular densities throughout the right lung. The largest of these is in the right upper lobe and measures approximately 1.5 x 2.0 cm. A few of these nodular densities appear to contain minute areas of cavitation and these findings could be secondary to septic emboli. The possibility that these are related to a fungal infection should also be considered. There are a few small nodular densities along the periphery of left upper lung and there is some atelectasis/infiltrate in the left lung base as well. There is no sign of pleural effusion. The heart is mildly enlarged and the heart does seem more prominent than noted on the prior exam. Furthermore, there is a pericardial effusion present. The effusion measures approximately 1.2 cm in maximum depth. There is no defect within the pulmonary arteries to indicate a pulmonary embolus. Aorta is not abnormally dilated. There is no sign of dissection. There are a few borderline enlarged mediastinal nodes. These are nonspecific in appearance. There is a roughly 1 cm low-density nodule in the left lobe of thyroid. This should be further evaluated by ultrasound. There is no obvious breast mass. The sections through the upper abdomen failed to show any sign of an acute abnormality. The liver is prominent and of lower density than usually seen. This appearance does suggest fatty metamorphosis. The spleen, pancreas, adrenals, kidneys, aorta and inferior vena cava are unremarkable for an acute abnormality. The gallbladder is distended but there is no sign of cholelithiasis or acute cholecystitis. The stomach is not well-distended and consequently difficult to assess. The bone windows show no evidence for a fracture or for a destructive lesion. IMPRESSION: 1. There are multiple pulmonary nodules, primarily on the right. A few of these do appear to contain minute areas of cavitation and these may represent septic emboli. An atypical inflammatory/infectious process could also present in this manner. A pulmonary consult would be recommended. 2. There is also some atelectasis/infiltrate in left lower lobe. 3. The heart is enlarged and there is a pericardial effusion. 4. There is no acute cardiopulmonary abnormality noted otherwise. In particular, there is no sign of a pulmonary embolus or dissection. The sections through the abdomen also fail to show any sign of an acute abnormality. 5. The appearance of liver does suggest fatty metamorphosis. 6. The gallbladder is distended but there is no evidence for acute cholecystitis. If further evaluation of the gallbladder is desired, then ultrasound would be recommended. 7. Ultrasound would also be recommended for further evaluation of low density nodule in the left lobe of the thyroid. Dictated by: Dictated on workstation # [id number]
[2016-04-05 14:07] LABS: BILIRUBIN,URINE 1+ (NEGATIVE); KETONES,URINE NEGATIVE (NEGATIVE); LEUKOCYTE ESTERASE ,URINE 3+ (NEGATIVE); NITRITE,URINE NEGATIVE (NEGATIVE); PH,URINE 7 (5-9); PROTEIN,URINE 4+ (NEGATIVE); UROBILINOGEN,URINE NORMAL (NORMAL)
--- NOTE | 2016-04-05 14:11 | Diagnostic Imaging Report ---
Portable erect AP chest at 1:32 p.m. INDICATION: Cough, weakness. FINDINGS: The heart is enlarged and the heart has increased in size since the prior exam of 02/12/2016. Furthermore, in the interval since the prior study, vague areas of increased density have developed in the right lung base and right upper lung. There also now appears to be atelectasis/pneumonia involving the left lung base. The mediastinum is not widened. The osseous structures are intact. IMPRESSION: There is cardiomegaly and left lower lobe pneumonia/atelectasis. The vague areas of increased density in the right lung base and right midlung are of uncertain etiology. Reportedly, CTA of the chest is pending for further study. Dictated by: Dictated on workstation # [id number]
[2016-04-05 14:19] LABS: WBC,URINE >100 /HPF
[2016-04-05] MEDS ORDERED: D5W 250 ML (IVPB) 250 ML IV ONE (14:53)
[2016-04-05] MEDS ORDERED: NOREPINEPHRINE 4 MG/4 ML (LEVOPHED) AMP IV ONE (14:53)
[2016-04-05 16:15] VITALS: BP 97/50
== END 2016-04-05 16:11 | disposition short-term general hospital (02) ==
LOC: EDUNIT# 11:23 → ER 11:25
DX: N17.9 Acute kidney failure, unspecified (principal); N39.0 Urinary tract infection, site not specified; R65.21 Severe sepsis with septic shock; I31.3 Pericardial effusion (noninflammatory); I51.7 Cardiomegaly; K82.8 Other specified diseases of gallbladder; R91.8 Other nonspecific abnormal finding of lung field; J44.9 Chronic obstructive pulmonary disease, unspecified; E11.9 Type 2 diabetes mellitus without complications; F17.210 Nicotine dependence, cigarettes, uncomplicated; Z79.84 Long term (current) use of oral hypoglycemic drugs; Z79.899 Other long term (current) drug therapy
CPT/HCPCS: 36415; 71010; 71275; 74175; 80053; 81000; 82805; 82962; 83605; 84484; 85007; 85027; 87040; 87077; 87088; 87186; 93005; 96361; 96365; 96366; 96367

== ENCOUNTER → 2016-04-22 | Outpatient (CLI) | payer MEDICARE ==
[~2016-04-22] MED LIST changes: +ACET-2267 PO; +ALBU2.5V4 NEB; +ASCO10006 PO; +CALC667C10 PO; +DOCU-143 PO; +ESCI10TA PO; +FURO-124 PO; +GUAI600T43 PO; +INSU100V SQ; +INSU100V5 SQ; +MELA1TAB10 PO; +NORM2DIS3 IV; +ONDN4T PO; +POTA20PA28 PO; +SILV400C23 TP; +SIME80TA16 PO; +VANC750P4 IV; +[UNRECOGNIZED DRUG - CODE] SC
--- OUTSIDE RECORDS SUMMARY | 2016-04-22 11:13 | XMS REPORT | Continuity of Care Document ---
Author Author [facility] Organization [facility] Address Unknown Phone Unavailable Care Team Providers Care Bus Trolley And Taxi Instructor Name Role Phone Coral Viveros PCP [phone] Source Comments Some departments are not documenting in the electronic medical record. If you do not see the information that you expected, contact Release of Information in the Health Information Management department at [phone] for further assistance in locating additional records.[facility] Active Allergies and Adverse Reactions [...]
[2016-04-22 14:07] LABS: CALCIUM 8.4 MG/DL (8.5-10.1); CREATININE SERUM 1.85 MG/DL (0.60-1.30); POTASSIUM 4.8 MMOL/L (3.6-5.0)
== END ==
LOC: LABNPT 11:09
DX: E11.9 Type 2 diabetes mellitus without complications (principal); B95.62 Methicillin resistant Staphylococcus aureus infection as the cause of diseases classified elsewhere
CPT/HCPCS: 80048; 80202

== ENCOUNTER → 2016-04-24 | Outpatient (CLI) | payer MEDICARE, MEDICAID ==
[2016-04-24 12:29] LABS: BASOPHILS % (AUTO) 0 % (0-10); EOSINOPHILS # (AUTO) 0.1 10^3/uL (0.0-0.3); EOSINOPHILS % (AUTO) 1 % (0-10); LYMPHOCYTES # (AUTO) 0.9 X 10^3 (1.0-4.0); LYMPHOCYTES % (AUTO) 14 % (12-44); MEAN CORPUSCULAR HEMOGLOBIN 28 PG (25-34); MEAN CORPUSCULAR HGB CONC 31 G/DL (32-36); MEAN CORPUSCULAR VOLUME 89 FL (80-99); MEAN PLATELET VOLUME 8.4 FL (7.4-10.4); MONOCYTES # (AUTO) 0.5 X 10^3 (0.0-1.0); MONOCYTES % (AUTO) 8 % (0-12); NEUTROPHILS # (AUTO) 5.2 X 10^3 (1.8-7.8); NEUTROPHILS % (AUTO) 78 % (42-75); PLATELET COUNT 174 10^3/uL (130-400); RED BLOOD COUNT 2.53 10^6/uL (4.35-5.85); RED CELL DISTRIBUTION WIDTH 15.1 % (10.0-14.5); WHITE BLOOD COUNT 6.7 10^3/uL (4.3-11.0)
[2016-04-24 12:45] LABS: CALCIUM 9.1 MG/DL (8.5-10.1); CREATININE SERUM 1.96 MG/DL (0.60-1.30); POTASSIUM 4.7 MMOL/L (3.6-5.0)
== END ==
LOC: LAB 11:58
PROVIDERS: ATTEND Internal Medicine
DX: E11.621 Type 2 diabetes mellitus with foot ulcer (principal); L97.522 Non-pressure chronic ulcer of other part of left foot with fat layer exposed; I89.0 Lymphedema, not elsewhere classified
CPT/HCPCS: 36415; 80048; 83036; 83880; 85025

== ENCOUNTER → 2016-04-28 | Outpatient (CLI) | payer MEDICARE, MEDICAID ==
--- OUTSIDE RECORDS SUMMARY | 2016-04-28 15:32 | XMS REPORT | Continuity of Care Document ---
Author Author [facility] Organization [facility] Address Unknown Phone Unavailable Care Team Providers Care Warp Dyeing Vat Tender Name Role Phone Coral Viveros PCP [phone] Source Comments Some departments are not documenting in the electronic medical record. If you do not see the information that you expected, contact Release of Information in the Health Information Management department at [phone] for further assistance in locating additional records.[facility] Active Allergies and Adverse Reactions [...]
== END ==
LOC: LABNPT 15:27
PROVIDERS: ATTEND Internal Medicine
DX: Z51.81 Encounter for therapeutic drug level monitoring (principal); Z79.2 Long term (current) use of antibiotics
CPT/HCPCS: 80202

== ENCOUNTER 2016-04-29 14:00 | Outpatient (RCR) | payer MEDICARE, MEDICAID ==
--- OUTSIDE RECORDS SUMMARY | 2016-02-14 09:35 | XMS REPORT | Continuity of Care Document ---
Author Author [facility] Organization [facility] Address Unknown Phone Unavailable Care Team Providers Care Edge Runner Name Role Phone Coral Viveros PCP [phone] Source Comments Some departments are not documenting in the electronic medical record. If you do not see the information that you expected, contact Release of Information in the Health Information Management department at [phone] for further assistance in locating additional records.[facility] Active Allergies and Adverse Reactions [...]
[~2016-04-29 14:00] MED LIST changes: -ACET-2267 PO; -ALBU2.5V4 NEB; -ASCO10006 PO; -CALC667C10 PO; -DOCU-143 PO; -ESCI10TA PO; -FURO-124 PO; -GUAI600T43 PO; -INSU100V SQ; -INSU100V5 SQ; -MELA1TAB10 PO; -NORM2DIS3 IV; -ONDN4T PO; -POTA20PA28 PO; -SILV400C23 TP; -SIME80TA16 PO; -VANC750P4 IV; -[UNRECOGNIZED DRUG - CODE] SC
[2016-05-06] MEDS ORDERED: ASCO10006 PO (12:36)
[2016-05-06] MEDS ORDERED: POTA20PA28 PO (12:36)
[2016-05-06] MEDS ORDERED: FURO-124 PO (12:36)
[2016-05-06] MEDS ORDERED: DOCU-143 PO (12:40)
[2016-05-06] MEDS ORDERED: MELA1TAB10 PO (12:40)
[2016-05-06] MEDS ORDERED: CALC667C10 PO (12:40)
[2016-05-06] MEDS ORDERED: ESCI10TA PO (12:40)
[2016-05-06] MEDS ORDERED: GUAI600T43 PO (12:40)
[2016-05-06] MEDS ORDERED: INSU100V5 SQ (13:00)
[2016-05-06] MEDS ORDERED: NORM2DIS3 IV (13:00)
[2016-05-06] MEDS ORDERED: ACET-2267 PO (13:00)
[2016-05-06] MEDS ORDERED: VANC750P4 IV (13:00)
[2016-05-06] MEDS ORDERED: SILV400C23 TP (13:00)
[2016-05-06] MEDS ORDERED: ONDN4T PO (13:00)
[2016-05-06] MEDS ORDERED: INSU100V SQ ×3 (13:00)
[2016-05-06] MEDS ORDERED: ALBU2.5V4 NEB (13:00)
[2016-05-06] MEDS ORDERED: SIME80TA16 PO (13:00)
[2016-05-06] MEDS ORDERED: [UNRECOGNIZED DRUG - CODE] SC (13:00)
== END 2016-05-14 | disposition home or self-care (01) ==
LOC: WOUNDCARE 14:00
PROVIDERS: ATTEND Internal Medicine
DX: E11.621 Type 2 diabetes mellitus with foot ulcer (principal); L97.522 Non-pressure chronic ulcer of other part of left foot with fat layer exposed; L97.512 Non-pressure chronic ulcer of other part of right foot with fat layer exposed; L97.521 Non-pressure chronic ulcer of other part of left foot limited to breakdown of skin; Z72.0 Tobacco use
CPT/HCPCS: 11042

== ENCOUNTER → 2016-05-02 | Outpatient (CLI) | payer MEDICARE ==
[~2016-05-02] MED LIST changes: +ACET-2267 PO; +ALBU2.5V4 NEB; +ASCO10006 PO; +CALC667C10 PO; +DOCU-143 PO; +ESCI10TA PO; +FURO-124 PO; +GUAI600T43 PO; +INSU100V SQ; +INSU100V5 SQ; +MELA1TAB10 PO; +NORM2DIS3 IV; +ONDN4T PO; +POTA20PA28 PO; +SILV400C23 TP; +SIME80TA16 PO; +VANC750P4 IV; +[UNRECOGNIZED DRUG - CODE] SC
[2016-05-02 11:10] LABS: BASOPHILS % (AUTO) 0 % (0-10); EOSINOPHILS % (AUTO) 1 % (0-10); LYMPHOCYTES # (AUTO) 0.6 X 10^3 (1.0-4.0); LYMPHOCYTES % (AUTO) 16 % (12-44); MEAN CORPUSCULAR HEMOGLOBIN 28 PG (25-34); MEAN CORPUSCULAR HGB CONC 31 G/DL (32-36); MEAN CORPUSCULAR VOLUME 90 FL (80-99); MEAN PLATELET VOLUME 8.3 FL (7.4-10.4); MONOCYTES # (AUTO) 0.3 X 10^3 (0.0-1.0); MONOCYTES % (AUTO) 8 % (0-12); NEUTROPHILS % (AUTO) 75 % (42-75); PLATELET COUNT 156 10^3/uL (130-400); RED BLOOD COUNT 2.37 10^6/uL (4.35-5.85); RED CELL DISTRIBUTION WIDTH 15.6 % (10.0-14.5)
[2016-05-02 11:24] LABS: CREATININE SERUM 2.34 MG/DL (0.60-1.30); POTASSIUM 5.2 MMOL/L (3.6-5.0)
== END ==
LOC: LABNPT 11:02
PROVIDERS: ATTEND Internal Medicine
DX: D64.9 Anemia, unspecified (principal); I10 Essential (primary) hypertension; J18.9 Pneumonia, unspecified organism
CPT/HCPCS: 80048; 83880; 85025

== ENCOUNTER 2016-05-06 08:24 | Inpatient (IN) | payer MEDICARE ==
[~2016-05-06] VITALS: Ht 147.3 cm; Wt 75.4 kg
[~2016-05-06 08:24] MED LIST changes: -ACET-2267 PO; -ALBU2.5V4 NEB; -ASCO10006 PO; -CALC667C10 PO; -DOCU-143 PO; -ESCI10TA PO; -FURO-124 PO; -GUAI600T43 PO; -INSU100V SQ; -INSU100V5 SQ; -MELA1TAB10 PO; -NORM2DIS3 IV; -ONDN4T PO; -POTA20PA28 PO; -SILV400C23 TP; -SIME80TA16 PO; -VANC750P4 IV; -[UNRECOGNIZED DRUG - CODE] SC
[2016-05-06 09:06] LABS: BASOPHILS % (AUTO) 0 % (0-10); EOSINOPHILS # (AUTO) 0.1 10^3/uL (0.0-0.3); EOSINOPHILS % (AUTO) 1 % (0-10); LYMPHOCYTES # (AUTO) 1.3 X 10^3 (1.0-4.0); LYMPHOCYTES % (AUTO) 16 % (12-44); MEAN CORPUSCULAR HEMOGLOBIN 28 PG (25-34); MEAN CORPUSCULAR HGB CONC 32 G/DL (32-36); MEAN CORPUSCULAR VOLUME 89 FL (80-99); MEAN PLATELET VOLUME 8.9 FL (7.4-10.4); MONOCYTES # (AUTO) 0.5 X 10^3 (0.0-1.0); MONOCYTES % (AUTO) 6 % (0-12); NEUTROPHILS # (AUTO) 6.2 X 10^3 (1.8-7.8); NEUTROPHILS % (AUTO) 77 % (42-75); PLATELET COUNT 220 10^3/uL (130-400); RED CELL DISTRIBUTION WIDTH 15.5 % (10.0-14.5)
[2016-05-06 09:19] LABS: ALBUMIN 2.7 G/DL (3.2-4.5); BILIRUBIN,TOTAL 0.3 MG/DL (0.1-1.0); CALCIUM 8.7 MG/DL (8.5-10.1); CREATININE SERUM 3.14 MG/DL (0.60-1.30); TOTAL PROTEIN 7.7 G/DL (6.4-8.2)
[2016-05-06 09:31] LABS: BILIRUBIN,URINE NEGATIVE (NEGATIVE); KETONES,URINE NEGATIVE (NEGATIVE); LEUKOCYTE ESTERASE ,URINE 3+ (NEGATIVE); NITRITE,URINE NEGATIVE (NEGATIVE); PH,URINE 5 (5-9); PROTEIN,URINE 3+ (NEGATIVE); UROBILINOGEN,URINE NORMAL (NORMAL)
[2016-05-06 09:31] LABS: POTASSIUM 6.3 MMOL/L (3.6-5.0)
--- NOTE | 2016-05-06 09:39 | Diagnostic Imaging Report ---
EXAMINATION: Portable upright radiograph of the chest. INDICATION: Syncope. Comparison to 04/05/16. FINDINGS: The heart size is moderately enlarged. There is severe cardiomegaly. Bilateral perihilar infiltrates are seen may relate to pulmonary edema. There is bilateral effusions small on the right side and moderate to large on the left. The left lower lobe is obscured. There is a tunneled central line through the right IJ with the tip at the cavoatrial junction. IMPRESSION: Cardiomegaly with bilateral perihilar infiltrates and effusions worse on the left side. This may relate to asymmetric pulmonary edema with or without superimposed infection. Correlate clinically. Dictated by: Dictated on workstation # [id number]
[2016-05-06 09:46] LABS: MAGNESIUM 2.5 MG/DL (1.8-2.4)
[2016-05-06 09:50] LABS: HYALINE CASTS, URINE 0-2 /LPF; WBC,URINE >100 /HPF
[2016-05-06 09:58] LABS: TROPONIN I < 0.30 NG/ML (<0.30)
--- NOTE | 2016-05-06 10:19 | ED Syncope ---
General Chief Complaint: Dizziness/Syncope Stated Complaint: SYNCOPE Nursing Triage Note: [facility]. Pt was given a sternal rub by nursing staff and responded by waking up. Source of Information: Patient Exam Limitations: No Limitations History of Present Illness Time Seen by Provider: 08:10 Initial Comments Here with report of a syncopal episode at the jail today. Patient was being assisted to go to breakfast and the nursing staff started her up further in a wheelchair. She apparently passed out. They laid her down on the floor and did a sternal rub and she woke up. EMS was summoned. Patient has no complaints currently. She does have history of left foot infection and renal failure. She states that they opted not to do dialysis after the last visit and were instead watching her for her renal function. Patient able answer all questions and is in no distress. Timing/Prior Episodes: No Prior History Precipitating Factors: Activity Loss of Consciousness: Brief (Seconds) Current Symptoms: Back to Normal Allergies and Home Medications Allergies Coded Allergies: No Known Drug Allergies (Unverified , 10/30/15) Home Medications Ascorbate Calcium 500 Mg Tablet, 500 MG PO DAILY, (Reported) Ferrous Sulfate 325 Mg Tablet, 325 MG PO DAILY, (Reported) Lisinopril/Hydrochlorothiazide 1 Each Tablet, 1 TAB PO DAILY, (Reported) Metformin HCl 850 Mg Tablet, 850 MG PO BID, (Reported) Constitutional: see HPI, No chills, No fever EENTM: no symptoms reported Respiratory: no symptoms reported Cardiovascular: see HPI, edema, syncope Gastrointestinal: No nausea, No vomiting Genitourinary: no symptoms reported Musculoskeletal: joint pain, muscle weakness Skin: lesions Psychiatric/Neurological: See HPI All Other Systems Reviewed Negative Unless Noted: Yes Past Pavkjye-Fvcixh-Enwqsn Hx Patient Social History Alcohol Use: Denies Use Recreational Drug Use: No Smoking Status: Former Smoker Type Used: Cigarettes Recent Foreign Travel: No Contact w/Someone Who Travel: No Recent Infectious Disease Expo: No Recent Hopitalizations: No Seasonal Allergies Seasonal Allergies: No Surgeries HX Surgeries: No Respiratory Hx Respiratory Disorders: Yes (COPD) Respiratory Disorders: Pneumonia, COPD Cardiovascular Hx Cardiac Disorders: Yes Cardiac Disorders: Hypertension Neurological Hx Neurological Disorders: No Reproductive System Hx Reproductive Disorders: No Sexually Transmitted Disease: No HIV/AIDS: No Genitourinary Hx Genitourinary Disorders: No Gastrointestinal Hx Gastrointestinal Disorders: No Musculoskeletal Hx Musculoskeletal Disorders: No Endocrine Hx Endocrine Disorders: Yes Endocrine Disorders: Diabetes, Non-Insulin dep HEENT HX ENT Disorders: No Loss of Vision: Denies Hearing Impairment: Denies Cancer Hx Cancer: No Psychosocial Hx Psychiatric Problems: Yes Behavioral Health Disorders: Depression Integumentary HX Skin/Integumentary Disorder: Yes (FOOT WOUNDS--IS BEING SEEN AT WOUND CARE ONCE A WEEK) Blood Transfusions Hx Blood Disorders: Yes (ANEMIA--S/P TRANSFUSIONS) Reviewed Nursing Assessment Reviewed/Agree w Nursing PMH: Yes Family Medical History Significant Family History: No Pertinent Family Hx Physical Exam Vital Signs Vital Sign - Last 12Hours 05/06/16 08:28 Temp 95.9 Pulse 88 Resp 22 B/P (MAP) 126/92 Pulse Ox 96 Capillary Refill : Less Than 3 Seconds General Appearance: No Apparent Distress, WD/WN HEENT: PERRL/EOMI, Pharynx Normal Neck: Non Tender, Supple Cardiovascular: Regular Rate, Rhythm, No Murmur Respiratory: Lungs Clear, Normal Breath Sounds Gastrointestinal: Non Tender, Soft Back: Normal Inspection, No Vertebral Tenderness Extremities: Pedal Edema (3+ edema to the level of the knees bilateral) Neurologic/Psychiatric: Alert, Oriented x3 Cranial Nerves: Normal Hearing, Normal Speech Skin: Normal Color, Warm/Dry Focused Exam Lactic Acid Level Laboratory Tests Test 05/06/16 08:45 Lactic Acid Level 0.94 MMOL/L (0.50-2.00) Progress/Results/Core Measures Results/Orders Lab Results Laboratory Tests Test 05/06/16 08:40 05/06/16 08:45 Range/Units Urine Color YELLOW Urine Clarity VERY CLOUDY H Urine pH 5 5-9 Urine Specific [place] 1.015 L 1.016-1.022 Urine Protein 3+ H NEGATIVE Urine Glucose (UA) NEGATIVE NEGATIVE Urine Ketones NEGATIVE NEGATIVE Urine Nitrite NEGATIVE NEGATIVE Urine Bilirubin NEGATIVE NEGATIVE Urine Urobilinogen NORMAL NORMAL MG/DL Urine Leukocyte Esterase 3+ H NEGATIVE Urine RBC (Auto) 4+ H NEGATIVE Urine RBC 25-50 H /HPF Urine WBC >100 H /HPF Urine Squamous Epithelial Cells 2-5 /HPF Urine Crystals NONE /LPF Urine Bacteria FEW H /HPF Urine Casts PRESENT /LPF Urine Hyaline Casts 0-2 H /LPF Urine Mucus NEGATIVE /LPF Urine Culture Indicated YES Magnesium Level 2.5 H 1.8-2.4 MG/DL Troponin I < 0.30 <0.30 NG/ML B-Type Natriuretic Peptide 921.9 H <100.0 PG/ML White Blood Count 8.0 4.3-11.0 10^3/uL Red Blood Count 2.60 L 4.35-5.85 10^6/uL Hemoglobin 7.3 L 11.5-16.0 G/DL Hematocrit 23 L 35-52 % Mean Corpuscular Volume 89 80-99 FL Mean Corpuscular Hemoglobin 28 25-34 PG Mean Corpuscular Hemoglobin Concent 32 32-36 G/DL Red Cell Distribution Width 15.5 H 10.0-14.5 % Platelet Count 220 130-400 10^3/uL Mean Platelet Volume 8.9 7.4-10.4 FL Neutrophils (%) (Auto) 77 H 42-75 % Lymphocytes (%) (Auto) 16 12-44 % Monocytes (%) (Auto) 6 0-12 % Eosinophils (%) (Auto) 1 0-10 % Basophils (%) (Auto) 0 0-10 % Neutrophils # (Auto) 6.2 1.8-7.8 X 10^3 Lymphocytes # (Auto) 1.3 1.0-4.0 X 10^3 Monocytes # (Auto) 0.5 0.0-1.0 X 10^3 Eosinophils # (Auto) 0.1 0.0-0.3 10^3/uL Basophils # (Auto) 0.0 0.0-0.1 10^3/uL Sodium Level 132 L 135-145 MMOL/L Potassium Level 6.3 H 3.6-5.0 MMOL/L Chloride Level 101 98-107 MMOL/L Carbon Dioxide Level 22 21-32 MMOL/L Anion Gap 9 5-14 MMOL/L Blood Urea Nitrogen 70 H 7-18 MG/DL Creatinine 3.14 H 0.60-1.30 MG/DL Estimat Glomerular Filtration Rate 15 BUN/Creatinine Ratio 22 Glucose Level 72 70-105 MG/DL Lactic Acid Level 0.94 0.50-2.00 MMOL/L Calcium Level 8.7 8.5-10.1 MG/DL Total Bilirubin 0.3 0.1-1.0 MG/DL Aspartate Amino Transf (AST/SGOT) 18 5-34 U/L Alanine Aminotransferase (ALT/SGPT) 11 0-55 U/L Alkaline Phosphatase 128 40-136 U/L Total Protein 7.7 6.4-8.2 G/DL Albumin 2.7 L 3.2-4.5 G/DL My Orders Orders - DANETTE RICHARD MD Cbc With Automated Diff (05/06/16 08:59) Comprehensive Metabolic Panel (05/06/16 08:59) Lactic Acid Analyzer (05/06/16 08:59) Cbc With Automated Diff (05/06/16 09:07) Ua Culture If Indicated (05/06/16 09:07) Blood Culture (05/06/16 09:09) BNP (05/06/16 09:09) Magnesium (05/06/16 09:09) Troponin I (05/06/16 09:09) Chest 1 View, Ap/Pa Only (05/06/16 09:09) Ekg Tracing (05/06/16 09:09) Urine Culture (05/06/16 08:40) Blood Culture (05/06/16 10:42) Rocephin 1g Iv (05/06/16 11:15) Vital Signs/I&O Vital Sign - Last 12Hours 05/06/16 08:28 Temp 95.9 Pulse 88 Resp 22 B/P (MAP) 126/92 Pulse Ox 96 Blood Pressure Mean: 103 Progress Note : Progress Note Seen and evaluated. IV, labs, EKG and chest x-ray ordered. UA ordered via straight catheter. Monitor patient. 1115: UTI noted. Rocephin 1 g IV initiated. We will give Lasix 40 mg IV 1 and initiate a small bolus of fluid over 10 hours to help decrease the potassium. This was discussed with Dr. Galan who agrees. She says patient for admission, inpatient status. Patient and family were informed that while we will try here with respect to her chronic renal failure that if her failure worsens she will need transfer. Patient and family verbalize understanding. They really do not want to be transferred if possible. Admit, inpatient status. ECG Initial ECG Impression Date: May 06, 2016 Initial ECG Impression Time: 09:17 Initial ECG Rate: 83 Initial ECG Rhythm: Normal Sinus Comment Sinus rhythm with interventricular conduction delay. No evidence of ST elevation DC. Similar to previous of 05 April 2016. Interpreted by me. Diagnostic Imaging Diagonstic Imaging: Xray Plain Films/CT/US/NM/MRI: chest Comments NAME: [facility] REC#: [id number] PT STATUS: REG ER : 1950 PHYSICIAN: DANETTE RICHARD MD ADMIT DATE: 05/06/16/ER Signed Date of Exam: 05/06/16 CHEST 1 VIEW, AP/PA ONLY EXAMINATION: Portable upright radiograph of the chest. INDICATION: Syncope. Comparison to 04/05/16. FINDINGS: The heart size is moderately enlarged. There is severe cardiomegaly. Bilateral perihilar infiltrates are seen may relate to pulmonary edema. There is bilateral effusions small on the right side and moderate to large on the left. The left lower lobe is obscured. There is a tunneled central line through the right IJ with the tip at the cavoatrial junction. IMPRESSION: Cardiomegaly with bilateral perihilar infiltrates and effusions worse on the left side. This may relate to asymmetric pulmonary edema with or without superimposed infection. Correlate clinically. Dictated by: Dictated on workstation # [id number] Dict: 05/06/1630 Trans: 05/06/16 0953 [facility] [id number] Interpreted by: ALEX GAVIRIA MD Electronically signed by:ALEX GAVIRIA MD 05/06/16 0953 Departure Communication Time/Spoke to Admitting Phy: 11:20 Impression Impression: Primary Impression: Urinary tract infection Qualified Codes: N30.00 - Acute cystitis without hematuria Additional Impression: Acute on chronic renal failure Disposition: ADMITTED INPATIENT Condition: Stable Decision to Admit Reason: Admit from ER (General) Decision to Admit/Date: May 06, 2016 Time/Decision to Admit Time: 11:20 Departure-Patient Inst. Referrals: JAIMIE LYONS MD (PCP/Family) Primary Care Physician DANETTE RICHARD MD May 06, 2016 10:19
[2016-05-06] MEDS ORDERED: cefTRIAXone INJECTION 1,000 MG in NS (IVPB) 50 ML IV ONE (11:15)
[2016-05-06 12:35] VITALS: BP 120/63
[2016-05-06] MEDS ORDERED: FURO-124 PO (12:36)
[2016-05-06] MEDS ORDERED: POTA20PA28 PO (12:36)
[2016-05-06] MEDS ORDERED: ASCO10006 PO (12:36)
[2016-05-06] MEDS ORDERED: GUAI600T43 PO (12:40)
[2016-05-06] MEDS ORDERED: ESCI10TA PO (12:40)
[2016-05-06] MEDS ORDERED: MELA1TAB10 PO (12:40)
[2016-05-06] MEDS ORDERED: DOCU-143 PO (12:40)
[2016-05-06] MEDS ORDERED: CALC667C10 PO (12:40)
[2016-05-06] MEDS ORDERED: NORM2DIS3 IV (13:00)
[2016-05-06] MEDS ORDERED: ONDN4T PO (13:00)
[2016-05-06] MEDS ORDERED: SILV400C23 TP (13:00)
[2016-05-06] MEDS ORDERED: [UNRECOGNIZED DRUG - CODE] SC (13:00)
[2016-05-06] MEDS ORDERED: INSU100V SQ ×3 (13:00)
[2016-05-06] MEDS ORDERED: VANC750P4 IV (13:00)
[2016-05-06] MEDS ORDERED: ACET-2267 PO (13:00)
[2016-05-06] MEDS ORDERED: ALBU2.5V4 NEB (13:00)
[2016-05-06] MEDS ORDERED: SIME80TA16 PO (13:00)
[2016-05-06] MEDS ORDERED: INSU100V5 SQ (13:00)
[2016-05-06] MEDS ORDERED: CATHETER FLUSH 10 ML SYR IV PRN (13:15)
[2016-05-06] MEDS ORDERED: NS IV 500 ML 500 ML IV ONE (13:15)
[2016-05-06] MEDS: CATHETER FLUSH 10 ML SYR IV SCH ×2 (15:07→22:17)
[2016-05-06 16:00] VITALS: BP 110/78
[2016-05-06] MEDS: inSUlin (REGULAR) HUMAN 1 UNIT/0.01 ML (CHARGE PER UNIT) SC SCH ×2 (16:12→22:17)
[2016-05-06] MEDS ORDERED: ACETAMINOPHEN 500 MG TAB (TYLENOL) PO PRN (20:45)
[2016-05-06] MEDS ORDERED: [UNRECOGNIZED DRUG - OTHER] SC SCH (20:45)
[2016-05-06] MEDS ORDERED: SILVER SULFADIAZINE 400 GM CREAM TP PRN (20:45)
[2016-05-06] MEDS ORDERED: HEPARIN SODIUM SC SCH (20:45)
[2016-05-06 20:55] VITALS: BP 108/61
[2016-05-06] MEDS ORDERED: NON-FORMULARY MEDICATION 1 EA EA (Melatonin/Pyridoxine (Melatonin 3 mg Tablet) 3 MG) PO SCH (21:00)
[2016-05-06] MEDS: FERROUS SULF 325 MG (IRON) TAB PO SCH (22:17)
[2016-05-07 00:25] VITALS: BP 122/78
[2016-05-07 04:10] VITALS: BP 110/68
[2016-05-07 04:30] LABS: BASOPHILS % (AUTO) 0 % (0-10); EOSINOPHILS # (AUTO) 0.1 10^3/uL (0.0-0.3); EOSINOPHILS % (AUTO) 1 % (0-10); LYMPHOCYTES # (AUTO) 1.4 X 10^3 (1.0-4.0); LYMPHOCYTES % (AUTO) 17 % (12-44); MEAN CORPUSCULAR HEMOGLOBIN 28 PG (25-34); MEAN CORPUSCULAR HGB CONC 31 G/DL (32-36); MEAN CORPUSCULAR VOLUME 89 FL (80-99); MEAN PLATELET VOLUME 8.9 FL (7.4-10.4); MONOCYTES # (AUTO) 0.5 X 10^3 (0.0-1.0); MONOCYTES % (AUTO) 6 % (0-12); NEUTROPHILS # (AUTO) 6.3 X 10^3 (1.8-7.8); NEUTROPHILS % (AUTO) 76 % (42-75); PLATELET COUNT 249 10^3/uL (130-400); RED BLOOD COUNT 2.66 10^6/uL (4.35-5.85); RED CELL DISTRIBUTION WIDTH 15.7 % (10.0-14.5); WHITE BLOOD COUNT 8.2 10^3/uL (4.3-11.0)
[2016-05-07 04:56] LABS: ALBUMIN 2.6 G/DL (3.2-4.5); BILIRUBIN,TOTAL 0.3 MG/DL (0.1-1.0); CALCIUM 8.3 MG/DL (8.5-10.1); CREATININE SERUM 3.06 MG/DL (0.60-1.30); TOTAL PROTEIN 7.6 G/DL (6.4-8.2)
[2016-05-07 04:57] LABS: POTASSIUM 6.6 MMOL/L (3.6-5.0)
[2016-05-07] MEDS: inSUlin (REGULAR) HUMAN 1 UNIT/0.01 ML (CHARGE PER UNIT) SC SCH ×4 (05:13→19:30)
[2016-05-07] MEDS ORDERED: FUROSEMIDE 40 MG/4 ML INJ (LASIX) IVP ONE (05:30)
[2016-05-07] MEDS: CATHETER FLUSH 10 ML SYR IV SCH ×3 (06:01→22:00)
[2016-05-07] MEDS: inSUlin ASPART (NovoLOG) 1 UNIT/0.01 ML (CHARGE PER UNIT) SC SCH ×3 (06:30→16:59)
[2016-05-07] MEDS ORDERED: NON-FORMULARY MEDICATION 1 EA EA (Insulin Lispro (Humalog) 10 UNIT) SQ SCH (07:00)
[2016-05-07 08:49] VITALS: BP 125/62
[2016-05-07] MEDS ORDERED: NON-FORMULARY MEDICATION 1 EA EA (Escitalopram Oxalate (Lexapro) 10 MG) PO SCH (09:00)
[2016-05-07] MEDS: FERROUS SULF 325 MG (IRON) TAB PO SCH ×2 (09:43→21:00)
[2016-05-07] MEDS: cefTRIAXone INJECTION 1,000 MG in NS (IVPB) 50 ML IV SCH (09:44)
[2016-05-07] MEDS: DOCUSATE SODIUM 100 MG (COLACE) CAP PO SCH (09:44)
--- NOTE | 2016-05-07 10:40 | History & Physicial (CHS) ---
HPI History of Present Illness: 66 yo with multiple co morbidities that was sent from [place] after having syncopal episode when she was headed down to lunch yesterday afternoon. Patient states that she remembers heading down to lunch and then woke up on the floor. Denies any symptoms prior to passing out. Denies racing heart, dizziness or pain. Patient was also found to have elevated Cr and potassium when she arrived at the ER. This AM states that she is feeling well and at her baseline. Tolerating po diet. States that she is peeing more then her normal. Source: patient, RN/MD, residential records Exam Limitations: no limitations Date seen by provider: May 07, 2016 Attending Physician Sharon Galan MD PCP Rashad Lockhart NP Consult Date of Admission May 06, 2016 at 11:44 Home Medications Home Medications Reviewed patient Home Medication Reconciliation Form Allergies Coded Allergies: No Known Drug Allergies (Unverified , 05/06/16) KWO-Ffvgme-Tnfzsb Hx Patient Social History Alcohol Use: Denies Use Recreational Drug Use: No Smoking Status: Unknown if Ever Smoked Type Used: Cigarettes Recent Foreign Travel: No Contact w/other who traveled: No Recent Hopitalizations: No Recent Infectious Disease Expo: No Physical Abuse Screen: No Sexual Abuse: No Immunizations Up To Date Date of Influenza Vaccine: Feb 13, 2016 Past Medical History Non Insulin Dependent DM Diabetic Foot wounds Chronic Kidney Disease baseline Cr 2.0 HTN Tobacco Abuse Family Medical History Significant Family History: No Pertinent Family Hx Family History: Patient reports no known family medical history. Review of Systems ([facility]C) Constitutional: no symptoms reported, No chills, No fever, No weakness, weight gain (fluid) EENTM: no symptoms reported, No blurred vision Respiratory: No cough, dyspnea on exertion, orthopnea Cardiovascular: no symptoms reported, No chest pain, No palpitations Gastrointestinal: no symptoms reported, No abdominal pain, No constipation, No diarrhea, No nausea, No vomiting Genitourinary: no symptoms reported, No dysuria, No frequency, No hematuria : No Musculoskeletal: no symptoms reported, No back pain, No joint pain, No muscle pain Skin: other (Chronic wounds present on both feet) Psychiatric/Neurological: No Symptoms Reported, Denies Anxiety, Denies Depressed Reviewed Test Results Reviewed Test Results Lab Laboratory Tests Test 05/06/16 16:05 05/06/16 22:13 05/07/16 04:20 05/07/16 09:36 Range/Units Glucometer 158 H 228 H 212 H 70-110 MG/DL White Blood Count 8.2 4.3-11.0 10^3/uL Red Blood Count 2.66 L 4.35-5.85 10^6/uL Hemoglobin 7.4 L 11.5-16.0 G/DL Hematocrit 24 L 35-52 % Mean Corpuscular Volume 89 80-99 FL Mean Corpuscular Hemoglobin 28 25-34 PG Mean Corpuscular Hemoglobin Concent 31 L 32-36 G/DL Red Cell Distribution Width 15.7 H 10.0-14.5 % Platelet Count 249 130-400 10^3/uL Mean Platelet Volume 8.9 7.4-10.4 FL Neutrophils (%) (Auto) 76 H 42-75 % Lymphocytes (%) (Auto) 17 12-44 % Monocytes (%) (Auto) 6 0-12 % Eosinophils (%) (Auto) 1 0-10 % Basophils (%) (Auto) 0 0-10 % Neutrophils # (Auto) 6.3 1.8-7.8 X 10^3 Lymphocytes # (Auto) 1.4 1.0-4.0 X 10^3 Monocytes # (Auto) 0.5 0.0-1.0 X 10^3 Eosinophils # (Auto) 0.1 0.0-0.3 10^3/uL Basophils # (Auto) 0.0 0.0-0.1 10^3/uL Sodium Level 132 L 135-145 MMOL/L Potassium Level 6.6 *H 3.6-5.0 MMOL/L Chloride Level 102 98-107 MMOL/L Carbon Dioxide Level 22 21-32 MMOL/L Anion Gap 8 5-14 MMOL/L Blood Urea Nitrogen 72 H 7-18 MG/DL Creatinine 3.06 H 0.60-1.30 MG/DL Estimat Glomerular Filtration Rate 15 BUN/Creatinine Ratio 24 Glucose Level 128 H 70-105 MG/DL Calcium Level 8.3 L 8.5-10.1 MG/DL Total Bilirubin 0.3 0.1-1.0 MG/DL Aspartate Amino Transf (AST/SGOT) 14 5-34 U/L Alanine Aminotransferase (ALT/SGPT) 11 0-55 U/L Alkaline Phosphatase 132 40-136 U/L Total Protein 7.6 6.4-8.2 G/DL Albumin 2.6 L 3.2-4.5 G/DL Radiology Date of Exam: 05/06/16 CHEST 1 VIEW, AP/PA ONLY EXAMINATION: Portable upright radiograph of the chest. INDICATION: Syncope. Comparison to 04/05/16. FINDINGS: The heart size is moderately enlarged. There is severe cardiomegaly. Bilateral perihilar infiltrates are seen may relate to pulmonary edema. There is bilateral effusions small on the right side and moderate to large on the left. The left lower lobe is obscured. There is a tunneled central line through the right IJ with the tip at the cavoatrial junction. IMPRESSION: Cardiomegaly with bilateral perihilar infiltrates and effusions worse on the left side. This may relate to asymmetric pulmonary edema with or without superimposed infection. Correlate clinically. Physical Exam-([facility]C) Physical Exam Vital Signs VS - Last 72 Hours, by Label 05/06/16 05/06/16 05/06/16 05/06/16 08:28 12:29 12:35 15:36 Temp 95.9 97.3 Pulse 88 85 80 84 Resp 22 18 16 B/P (MAP) 126/92 120/63 Pulse Ox 96 96 100 O2 Delivery Nasal Cannula O2 Flow Rate 2.00 2.00 05/06/16 05/06/16 05/06/16 05/06/16 16:00 16:42 19:00 20:55 Temp 97.6 97.6 Pulse 87 85 91 Resp 18 20 B/P (MAP) 110/78 108/61 Pulse Ox 100 96 O2 Delivery Nasal Cannula Nasal Cannula Nasal Cannula O2 Flow Rate 2.00 2.00 2.00 05/06/16 05/07/16 05/07/16 05/07/16 21:05 00:25 01:17 04:10 Temp 96.5 96.2 Pulse 89 84 90 Resp 18 22 B/P (MAP) 122/78 110/68 Pulse Ox 96 100 98 O2 Delivery Nasal Cannula Nasal Cannula Nasal Cannula O2 Flow Rate 2.00 2.00 2.00 05/07/16 05/07/16 08:49 09:01 Temp 96.6 Pulse 94 Resp 20 B/P (MAP) 125/62 Pulse Ox 93 O2 Delivery Nasal Cannula O2 Flow Rate 2.00 2.00 Capillary Refill : Less Than 3 Seconds General Appearance: WD/WN, no apparent distress HEENT: PERRL/EOMI, normal ENT inspection Neck: non-tender, full range of motion, supple, normal inspection Respiratory: chest non-tender, normal breath sounds, no accessory muscle use, crackles (bilateral basilar crackles) Cardiovascular: regular rate, rhythm, no JVD, no murmur Gastrointestinal: normal bowel sounds, non tender, soft, No tenderness Extremities: non-tender, no calf tenderness, normal capillary refill, pedal edema (2+ pitting edema equal bilaterally) Neurologic/Psychiatric: assistant director II-XII nml as tested, no motor/sensory deficits, normal mood/affect, oriented x 3 Skin: other Lymphatic: no adenopathy Assessment/Plan Assessment/Plan Plan 66 yo F admitted for syncopal episode and abnormal labs Plan Syncopal Episode: DDx hyperkalemia vs fluid overload vs hypoglycemia - Has not had another episode, continue to monitor on Tele Acute on Chronic Kidney Disease Stage IV - Fluid restriction - Gentle diuresis - Discussed need for future HD and patient would like to get dialysis when it is time Hyperkalemia: Asymptomatic - Patient on insulin and lasix - ECG in AM UTI - Continue Rocephin D2, culture pending Insulin Dependent DM - Continue home insulin, will continue to monitor blood sugars Anemia of chronic kidney disease - Iron level pending - Patient would likely benefit from Epogen FEN: DM/renal diet DVT PPX: SCDs Social: patient would like to go home following this hospitalization, will consult SW Diagnosis/Problems: Clinical Quality Measures DVT/VTE Risk/Contraindication: Risk Factor Score Per Nursin RFS Level Per Nursing on Admit: 4+=Very High Copy Copies To 1: nelson SANCHEZ HOLLY R MD May 07, 2016 10:40
[2016-05-07 12:00] VITALS: BP 112/65
[2016-05-07 16:51] VITALS: BP 118/70
[2016-05-07] MEDS ORDERED: INSULIN LISPRO SQ SCH (17:00)
[2016-05-07] MEDS ORDERED: FUROSEMIDE 40 MG/4 ML INJ (LASIX) ONE (18:58)
[2016-05-07] MEDS ORDERED: FUROSEMIDE 40 MG/4 ML INJ (LASIX) IVP NR (19:00)
[2016-05-07] MEDS: RT-ALBUTEROL/IPRATROPIUM 3 ML (DUONEB) VIAL INH PRN (19:16)
[2016-05-07 20:10] VITALS: BP 125/62
[2016-05-07] MEDS: MELATONIN 3 MG TABLET PO SCH (21:00)
[2016-05-07] MEDS: inSUlin DETERMIR 1 UNIT/0.01 ML (LEVEMIR) CHARGE PER UNIT SQ SCH (21:00)
[2016-05-08] VITALS: BP 117/56
[2016-05-08] MEDS: RT-ALBUTEROL/IPRATROPIUM 3 ML (DUONEB) VIAL INH PRN (02:21)
[2016-05-08 04:00] VITALS: BP 121/64
[2016-05-08 05:42] LABS: BASOPHILS % (AUTO) 0 % (0-10); EOSINOPHILS # (AUTO) 0.1 10^3/uL (0.0-0.3); EOSINOPHILS % (AUTO) 1 % (0-10); LYMPHOCYTES # (AUTO) 1.4 X 10^3 (1.0-4.0); LYMPHOCYTES % (AUTO) 18 % (12-44); MEAN CORPUSCULAR HEMOGLOBIN 27 PG (25-34); MEAN CORPUSCULAR HGB CONC 30 G/DL (32-36); MEAN CORPUSCULAR VOLUME 90 FL (80-99); MEAN PLATELET VOLUME 8.6 FL (7.4-10.4); MONOCYTES # (AUTO) 0.5 X 10^3 (0.0-1.0); MONOCYTES % (AUTO) 6 % (0-12); NEUTROPHILS # (AUTO) 5.7 X 10^3 (1.8-7.8); NEUTROPHILS % (AUTO) 75 % (42-75); PLATELET COUNT 244 10^3/uL (130-400); RED BLOOD COUNT 2.58 10^6/uL (4.35-5.85); RED CELL DISTRIBUTION WIDTH 15.7 % (10.0-14.5); RETICULOCYTE % 3.55 % (0.50-2.40); WHITE BLOOD COUNT 7.5 10^3/uL (4.3-11.0)
[2016-05-08 05:57] LABS: CALCIUM 8.3 MG/DL (8.5-10.1); CREATININE SERUM 3.29 MG/DL (0.60-1.30); POTASSIUM 6.2 MMOL/L (3.6-5.0)
[2016-05-08] MEDS: CATHETER FLUSH 10 ML SYR IV SCH ×3 (06:00→21:11)
[2016-05-08] MEDS: inSUlin (REGULAR) HUMAN 1 UNIT/0.01 ML (CHARGE PER UNIT) SC SCH ×4 (06:00→21:10)
[2016-05-08 08:20] VITALS: BP 104/58
[2016-05-08] MEDS: inSUlin ASPART (NovoLOG) 1 UNIT/0.01 ML (CHARGE PER UNIT) SC SCH ×3 (08:21→16:53)
[2016-05-08] MEDS: FERROUS SULF 325 MG (IRON) TAB PO SCH ×2 (10:44→21:09)
[2016-05-08] MEDS: FUROSEMIDE 40 MG/4 ML INJ (LASIX) IVP SCH (10:45)
[2016-05-08] MEDS: DOCUSATE SODIUM 100 MG (COLACE) CAP PO SCH (10:45)
[2016-05-08] MEDS: cefTRIAXone INJECTION 1,000 MG in NS (IVPB) 50 ML IV SCH (10:46)
[2016-05-08] MEDS: CEPHALEXIN 250 MG (KEFLEX) CAP PO SCH ×3 (11:32→21:09)
[2016-05-08 12:00] VITALS: BP 92/53
--- NOTE | 2016-05-08 14:17 | Progress Note (SOAP) ---
Subjective Subjective/Events-last exam States that she is feeling better today. Still having alot of lower extremity swelling. Tolerating PO diet. Able to stand with help. Uses wheelchair at [place]. Patient is wanting to go home from the hospital to live with her sister. Her sister is here with her this AM. States that they need a walker and a wheelchair. They live in a one story house w/o stairs. Date seen by provider: May 08, 2016 Objective Exam Last Set of Vital Signs Vital Signs Date Time Temp Pulse Resp B/P (MAP) Pulse Ox O2 Delivery O2 Flow Rate FiO2 05/08/16 12:00 97.0 96 12 92/53 98 Nasal Cannula 2.00 Capillary Refill : Less Than 3 Seconds I&O Intake and Output 05/08/16 00:00 Intake Total 1520 ml Output Total 700 ml Balance 820 ml Intake Oral 970 ml IV Total 550 ml Output Urine Total 700 ml # Voids 2 # Bowel Movements 2 General: Alert, Oriented X3, Cooperative, No Acute Distress HEENT: Mucous Memb Moist/[place] Lungs: Clear to Auscultation Heart: Regular Rate, No Murmurs Abdomen: Normal Bowel Sounds, Soft, No Tenderness Extremities: Other (3+ pitting edema bilaterally) Neuro: Strength at 5/5 X4 Ext, Cranial Nerves 3-12 NL Results/Procedures Lab Laboratory Tests 05/07/16 14:41: Glucometer 135H 05/07/16 19:24: Glucometer 113H 05/08/16 05:10: White Blood Count 7.5, Red Blood Count 2.58L, Hemoglobin 7.0L, Hematocrit 23L, Mean Corpuscular Volume 90, Mean Corpuscular Hemoglobin 27, Mean Corpuscular Hemoglobin Concent 30L, Red Cell Distribution Width 15.7H, Platelet Count 244, Mean Platelet Volume 8.6, Neutrophils (%) (Auto) 75, Lymphocytes (%) (Auto) 18, Monocytes (%) (Auto) 6, Eosinophils (%) (Auto) 1, Basophils (%) (Auto) 0, Neutrophils # (Auto) 5.7, Lymphocytes # (Auto) 1.4, Monocytes # (Auto) 0.5, Eosinophils # (Auto) 0.1, Basophils # (Auto) 0.0, Absolute Reticulocyte Count 92H, Percent Reticulocyte Count 3.55H, Sodium Level 131L, Potassium Level 6.2H, Chloride Level 102, Carbon Dioxide Level 23, Anion Gap 6, Blood Urea Nitrogen 80H, Creatinine 3.29H, Estimat Glomerular Filtration Rate 14, BUN/Creatinine Ratio 24, Glucose Level 76, Calcium Level 8.3L 05/08/16 05:36: Glucometer 81 05/08/16 11:06: Glucometer 182H Microbiology 05/06/16 Blood Culture - Preliminary, Resulted No growth 05/06/16 Urine Culture - Final, Complete Radiology Date of Exam: 05/06/16 CHEST 1 VIEW, AP/PA ONLY EXAMINATION: Portable upright radiograph of the chest. INDICATION: Syncope. Comparison to 04/05/16. FINDINGS: The heart size is moderately enlarged. There is severe cardiomegaly. Bilateral perihilar infiltrates are seen may relate to pulmonary edema. There is bilateral effusions small on the right side and moderate to large on the left. The left lower lobe is obscured. There is a tunneled central line through the right IJ with the tip at the cavoatrial junction. IMPRESSION: Cardiomegaly with bilateral perihilar infiltrates and effusions worse on the left side. This may relate to asymmetric pulmonary edema with or without superimposed infection. Correlate clinically. Assessment/Plan Assessment/Plan Plan 66 yo F admitted for syncopal episode and abnormal labs Plan Syncopal Episode: DDx hyperkalemia vs fluid overload vs hypoglycemia - Has not had another episode, continue to monitor on Tele Acute on Chronic Kidney Disease Stage IV - Fluid restriction - Gentle diuresis - Discussed need for future HD and patient would like to get dialysis when it is time, Have discussed with patient that she needs to get set up with kidney doctor Hyperkalemia: Asymptomatic, trending down - Patient on insulin and lasix UTI - Shukla Sensitive Culture: Started Keflex D3/5 Insulin Dependent DM - Continue home insulin, will continue to monitor blood sugars Anemia of chronic kidney disease - Iron level pending - Patient would likely benefit from Epogen, Will give dose tomorrow FEN: DM/renal diet DVT PPX: SCDs Social: patient would like to go home following this hospitalization, will consult SW, needs walker and wheel chair Diagnosis/Problems: Clinical Quality Measures DVT/VTE Risk/Contraindication: Risk Factor Score Per Nursin RFS Level Per Nursing on Admit: 4+=Very High NEERAJ CADENA MD May 08, 2016 14:17
[2016-05-08 16:55] VITALS: BP 116/54
[2016-05-08 20:05] VITALS: BP 99/70
[2016-05-08] MEDS: MELATONIN 3 MG TABLET PO SCH (21:09)
[2016-05-08] MEDS: inSUlin DETERMIR 1 UNIT/0.01 ML (LEVEMIR) CHARGE PER UNIT SQ SCH (21:09)
[2016-05-09] VITALS: BP 96/60
[2016-05-09] MEDS: RT-ALBUTEROL/IPRATROPIUM 3 ML (DUONEB) VIAL INH PRN (02:17)
[2016-05-09 04:04] VITALS: BP 101/64
[2016-05-09 05:19] LABS: BASOPHILS % (AUTO) 0 % (0-10); EOSINOPHILS # (AUTO) 0.2 10^3/uL (0.0-0.3); EOSINOPHILS % (AUTO) 2 % (0-10); LYMPHOCYTES # (AUTO) 1.4 X 10^3 (1.0-4.0); LYMPHOCYTES % (AUTO) 16 % (12-44); MEAN CORPUSCULAR HEMOGLOBIN 27 PG (25-34); MEAN CORPUSCULAR HGB CONC 31 G/DL (32-36); MEAN CORPUSCULAR VOLUME 89 FL (80-99); MEAN PLATELET VOLUME 8.6 FL (7.4-10.4); MONOCYTES # (AUTO) 0.7 X 10^3 (0.0-1.0); MONOCYTES % (AUTO) 7 % (0-12); NEUTROPHILS # (AUTO) 6.7 X 10^3 (1.8-7.8); NEUTROPHILS % (AUTO) 75 % (42-75); PLATELET COUNT 318 10^3/uL (130-400); RED BLOOD COUNT 2.59 10^6/uL (4.35-5.85); RED CELL DISTRIBUTION WIDTH 15.7 % (10.0-14.5); WHITE BLOOD COUNT 8.9 10^3/uL (4.3-11.0)
[2016-05-09] MEDS: inSUlin (REGULAR) HUMAN 1 UNIT/0.01 ML (CHARGE PER UNIT) SC SCH ×4 (06:00→22:54)
[2016-05-09 06:01] LABS: CALCIUM 8.3 MG/DL (8.5-10.1); CREATININE SERUM 3.23 MG/DL (0.60-1.30)
[2016-05-09] MEDS: CATHETER FLUSH 10 ML SYR IV SCH ×3 (06:09→20:54)
[2016-05-09] MEDS: inSUlin ASPART (NovoLOG) 1 UNIT/0.01 ML (CHARGE PER UNIT) SC SCH ×3 (06:09→18:26)
[2016-05-09] MEDS ORDERED: IRON SUCROSE INJECTION 300 MG in NS (IVPB) 250 ML IV SCH (10:00)
[2016-05-09] MEDS: FUROSEMIDE 40 MG/4 ML INJ (LASIX) IVP SCH (10:00)
[2016-05-09] MEDS: FERROUS SULF 325 MG (IRON) TAB PO SCH (10:00)
[2016-05-09] MEDS: CEPHALEXIN 250 MG (KEFLEX) CAP PO SCH ×4 (10:00→20:52)
[2016-05-09] MEDS: DOCUSATE SODIUM 100 MG (COLACE) CAP PO SCH (10:00)
[2016-05-09 12:00] VITALS: BP 119/83
--- NOTE | 2016-05-09 15:21 | Wound Care Progress Note ---
Subjective Subjective Subjective/Events-last exam Seen at attending's request. Sitting bolt upright with feet on the floor. Has wet dressing (from lymphatic drainage from skin) and macerated skin of foot.. No open areas. Does not need any further dressings. Nurses instructed to keep legs elevated and use jocelyn to catch drainage. PMH: No interval change. Review of Systems Pulmonary: No Dyspnea Cardiovascular: No: Chest Pain Objective Exam Last Set of Vital Signs Vital Signs Date Time Temp Pulse Resp B/P (MAP) Pulse Ox O2 Delivery O2 Flow Rate FiO2 05/09/16 12:00 96.0 95 24 119/83 95 Nasal Cannula 2.00 Capillary Refill : Less Than 3 Seconds I&O Intake and Output 05/09/16 00:00 Intake Total 1430 ml Output Total 600 ml Balance 830 ml Intake Oral 1380 ml IV Total 50 ml Output Urine Total 600 ml # Voids 3 # Bowel Movements 1 General: No Acute Distress Lungs: Normal Air Movement Extremities: Other (4+ pitting edema of both legs up on to thighs.) Results Lab Laboratory Tests 05/08/16 19:59: Glucometer 201H 05/09/16 05:09: White Blood Count 8.9, Red Blood Count 2.59L, Hemoglobin 7.1L, Hematocrit 23L, Mean Corpuscular Volume 89, Mean Corpuscular Hemoglobin 27, Mean Corpuscular Hemoglobin Concent 31L, Red Cell Distribution Width 15.7H, Platelet Count 318, Mean Platelet Volume 8.6, Neutrophils (%) (Auto) 75, Lymphocytes (%) (Auto) 16, Monocytes (%) (Auto) 7, Eosinophils (%) (Auto) 2, Basophils (%) (Auto) 0, Neutrophils # (Auto) 6.7, Lymphocytes # (Auto) 1.4, Monocytes # (Auto) 0.7, Eosinophils # (Auto) 0.2, Basophils # (Auto) 0.0, Sodium Level 131L, Potassium Level 6.0H, Chloride Level 101, Carbon Dioxide Level 22, Anion Gap 8, Blood Urea Nitrogen 85H, Creatinine 3.23H, Estimat Glomerular Filtration Rate 14, BUN/ Creatinine Ratio 26, Glucose Level 47*L, Calcium Level 8.3L 05/09/16 06:47: Glucometer 93 05/09/16 10:09: Glucometer 191H Microbiology 05/06/16 Blood Culture - Preliminary, Resulted No growth 05/06/16 Urine Culture - Final, Complete Assessment/Plan Assessment/Plan Assessment/Plan 1. Lymphedema of both legs, multifactorial. 2. Diabetes with history of Foot ulcers. Plan: Elevate, no dressings. HIWOT BROWNING MD May 09, 2016 15:21
[2016-05-09 15:55] VITALS: BP 130/67
--- NOTE | 2016-05-09 18:58 | Progress Note (SOAP) ---
Subjective Subjective/Events-last exam No complaints this AM per patient. States that she feels good. Minimal improvement on swelling. Diuresing well. Tolerating PO diet. Denies chest pain, shortness of breath or abdominal pain. Date seen by provider: May 09, 2016 Time seen by provider: 11:00 Objective Exam Last Set of Vital Signs Vital Signs Date Time Temp Pulse Resp B/P (MAP) Pulse Ox O2 Delivery O2 Flow Rate FiO2 05/09/16 12:00 96.0 95 24 119/83 95 Nasal Cannula 2.00 Capillary Refill : Less Than 3 Seconds I&O Intake and Output 05/09/16 00:00 Intake Total 1430 ml Output Total 600 ml Balance 830 ml Intake Oral 1380 ml IV Total 50 ml Output Urine Total 600 ml # Voids 3 # Bowel Movements 1 General: Alert, Oriented X3, Cooperative, No Acute Distress Neck: Supple Lungs: Clear to Auscultation, Normal Air Movement Heart: Regular Rate, No Murmurs Abdomen: Normal Bowel Sounds, Soft, No Tenderness Extremities: Other (3+ pitting edema bilaterally) Neuro: Normal Speech, Strength at 5/5 X4 Ext, Sensation Intact, Cranial Nerves 3-12 NL Psych/Mental Status: Mental Status NL, Mood NL Results/Procedures Lab Laboratory Tests 05/08/16 19:59: Glucometer 201H 05/09/16 05:09: White Blood Count 8.9, Red Blood Count 2.59L, Hemoglobin 7.1L, Hematocrit 23L, Mean Corpuscular Volume 89, Mean Corpuscular Hemoglobin 27, Mean Corpuscular Hemoglobin Concent 31L, Red Cell Distribution Width 15.7H, Platelet Count 318, Mean Platelet Volume 8.6, Neutrophils (%) (Auto) 75, Lymphocytes (%) (Auto) 16, Monocytes (%) (Auto) 7, Eosinophils (%) (Auto) 2, Basophils (%) (Auto) 0, Neutrophils # (Auto) 6.7, Lymphocytes # (Auto) 1.4, Monocytes # (Auto) 0.7, Eosinophils # (Auto) 0.2, Basophils # (Auto) 0.0, Sodium Level 131L, Potassium Level 6.0H, Chloride Level 101, Carbon Dioxide Level 22, Anion Gap 8, Blood Urea Nitrogen 85H, Creatinine 3.23H, Estimat Glomerular Filtration Rate 14, BUN/ Creatinine Ratio 26, Glucose Level 47*L, Calcium Level 8.3L 05/09/16 06:47: Glucometer 93 05/09/16 10:09: Glucometer 191H 05/09/16 15:54: Glucometer 214H Microbiology 05/06/16 Blood Culture - Preliminary, Resulted No growth 05/06/16 Urine Culture - Final, Complete Radiology Date of Exam: 05/06/16 CHEST 1 VIEW, AP/PA ONLY EXAMINATION: Portable upright radiograph of the chest. INDICATION: Syncope. Comparison to 04/05/16. FINDINGS: The heart size is moderately enlarged. There is severe cardiomegaly. Bilateral perihilar infiltrates are seen may relate to pulmonary edema. There is bilateral effusions small on the right side and moderate to large on the left. The left lower lobe is obscured. There is a tunneled central line through the right IJ with the tip at the cavoatrial junction. IMPRESSION: Cardiomegaly with bilateral perihilar infiltrates and effusions worse on the left side. This may relate to asymmetric pulmonary edema with or without superimposed infection. Correlate clinically. Assessment/Plan Assessment/Plan Plan 66 yo F admitted for syncopal episode and abnormal labs Plan Syncopal Episode: DDx hyperkalemia vs fluid overload vs hypoglycemia - Has not had another episode, continue to monitor on Tele Acute on Chronic Kidney Disease Stage IV - Fluid restriction 2L - Gentle diuresis - Discussed need for future HD and patient would like to get dialysis when it is time, Have discussed with patient that she needs to get set up with kidney doctor, discussed care with PCP Richy Hyperkalemia: Asymptomatic, trending down - Patient on insulin and lasix UTI - Shukla Sensitive Culture: Started Keflex D4/5 Insulin Dependent DM - Continue home insulin, will continue to monitor blood sugars Anemia of chronic kidney disease with iron deficiency - Venefer x1 given today, repeat dose tomorrow - Retic count elevated - Will give dose of Epogen today FEN: DM/renal diet DVT PPX: SCDs Social: patient would like to go home following this hospitalization, will consult SW, needs walker and wheel chair, orders placed today in preparation for weekend d/c Diagnosis/Problems: Clinical Quality Measures DVT/VTE Risk/Contraindication: Risk Factor Score Per Nursin RFS Level Per Nursing on Admit: 4+=Very High NEERAJ CADENA MD May 09, 2016 18:58
[2016-05-09 19:30] VITALS: BP 121/80
[2016-05-09] MEDS: MELATONIN 3 MG TABLET PO SCH (20:52)
[2016-05-09] MEDS: inSUlin DETERMIR 1 UNIT/0.01 ML (LEVEMIR) CHARGE PER UNIT SQ SCH (22:57)
[2016-05-10] VITALS (20 sets, daily range): BP systolic 54–160; BP diastolic 21–124
[2016-05-10] MEDS: RT-ALBUTEROL/IPRATROPIUM 3 ML (DUONEB) VIAL INH PRN (00:19)
[2016-05-10 05:54] LABS: BASOPHILS % (AUTO) 0 % (0-10); EOSINOPHILS # (AUTO) 0.1 10^3/uL (0.0-0.3); EOSINOPHILS % (AUTO) 2 % (0-10); LYMPHOCYTES # (AUTO) 1.2 X 10^3 (1.0-4.0); LYMPHOCYTES % (AUTO) 16 % (12-44); MEAN CORPUSCULAR HEMOGLOBIN 28 PG (25-34); MEAN CORPUSCULAR HGB CONC 31 G/DL (32-36); MEAN CORPUSCULAR VOLUME 90 FL (80-99); MEAN PLATELET VOLUME 8.6 FL (7.4-10.4); MONOCYTES # (AUTO) 0.5 X 10^3 (0.0-1.0); MONOCYTES % (AUTO) 7 % (0-12); NEUTROPHILS # (AUTO) 5.5 X 10^3 (1.8-7.8); NEUTROPHILS % (AUTO) 75 % (42-75); PLATELET COUNT 295 10^3/uL (130-400); RED BLOOD COUNT 2.56 10^6/uL (4.35-5.85); RED CELL DISTRIBUTION WIDTH 15.9 % (10.0-14.5); WHITE BLOOD COUNT 7.4 10^3/uL (4.3-11.0)
[2016-05-10] MEDS: inSUlin (REGULAR) HUMAN 1 UNIT/0.01 ML (CHARGE PER UNIT) SC SCH ×3 (06:00→14:30)
[2016-05-10 06:18] LABS: CALCIUM 8.3 MG/DL (8.5-10.1); CREATININE SERUM 3.11 MG/DL (0.60-1.30); POTASSIUM 5.9 MMOL/L (3.6-5.0)
[2016-05-10] MEDS: CATHETER FLUSH 10 ML SYR IV SCH ×2 (06:20→12:58)
[2016-05-10] MEDS: inSUlin ASPART (NovoLOG) 1 UNIT/0.01 ML (CHARGE PER UNIT) SC SCH ×2 (06:20→12:08)
[2016-05-10] MEDS: DOCUSATE SODIUM 100 MG (COLACE) CAP PO SCH (10:31)
[2016-05-10] MEDS: FUROSEMIDE 40 MG/4 ML INJ (LASIX) IVP SCH (10:31)
[2016-05-10] MEDS: CEPHALEXIN 250 MG (KEFLEX) CAP PO SCH ×3 (10:31→17:00)
[2016-05-10] MEDS ORDERED: IRON SUCROSE INJECTION 300 MG in NS (IVPB) 250 ML IV SCH (11:00)
[2016-05-10] MEDS ORDERED: CALCIUM CHLORIDE 1 GM/10 ML (IMS) SYR ONE (13:00)
[2016-05-10] MEDS ORDERED: NS 250 ML (IVPB) BAG ONE (13:00)
[2016-05-10] MEDS ORDERED: AMIODARONE 150 MG/3 ML (CORDARONE) AMP IV ONE (13:00)
[2016-05-10] MEDS ORDERED: DOPamine DRIP 400,000 MCG/250 ML BAG IV ONE (13:00)
[2016-05-10] MEDS ORDERED: MIDAZOLAM 5 MG/5 ML (VERSED) VIAL ONE (13:00)
[2016-05-10] MEDS ORDERED: EPINEPHrine 0.1 MG/ML 10 ML (HOSPIRA) SYR ONE (13:00)
[2016-05-10] MEDS ORDERED: CATHETER FLUSH 10 ML SYR ONE (13:00)
[2016-05-10] MEDS ORDERED: DEXTROSE 50% 50 ML (IMS) SYR ONE (13:00)
[2016-05-10] MEDS ORDERED: RT-ALBUTEROL SULF 2.5 MG/3 ML PRE-MIX VIAL ONE (13:32)
[2016-05-10] MEDS ORDERED: LORazepam INJ 2 MG/ML (ATIVAN) VIAL IVP ONE (13:47)
[2016-05-10] MEDS ORDERED: LORazepam INJ 2 MG/ML (ATIVAN) VIAL ONE (13:47)
[2016-05-10 13:55] LABS: ABG BASE EXCESS -13.8 MMOL/L (-2.5-2.5); ABG OXYGEN SATURATION 100 % (94-100); ABG PCO2 43 MMHG (35-45); ABG PO2 161 MMHG (79-93); ABG TCO2 15.4 MMOL/L (21.0-31.0)
[2016-05-10] MEDS ORDERED: SODIUM BICARB 8.4% 50 MEQ/50 ML (ABBOTT) SYR ONE (13:59)
[2016-05-10 14:01] LABS: ABG HCO3 14 MMOL/L (23-27); ABG PH 7.12 (7.37-7.43)
[2016-05-10 14:02] LABS: ALLENS TEST YES-POS; PATIENT TEMP 95.7
[2016-05-10] MEDS ORDERED: NS IV 1000 ML 1,000 ML ONE (14:04)
[2016-05-10] MEDS ORDERED: PROPOFOL DRIP (ICU) 100 ML IV SCH (14:10)
[2016-05-10] MEDS ORDERED: NOREPINEPHRINE 4 MG in D5W 250 ML (IVPB) 250 ML IV SCH (14:16)
[2016-05-10] MEDS ORDERED: NOREPINEPHRINE 4 MG/4 ML (LEVOPHED) AMP IV ONE ×2 (14:16→17:27)
[2016-05-10] MEDS ORDERED: D5W 250 ML (IVPB) 250 ML IV ONE ×2 (14:17→17:27)
[2016-05-10] MEDS ORDERED: SOD POLYSTERENE 15 GM/60 ML (KAYEXALATE) UNIT DOSE PO ONE (14:45)
[2016-05-10] MEDS ORDERED: SODIUM BICARBONATE 8.4% VIAL 150 MEQ in 1/2 NS IV SOLUTION 1,000 ML IV SCH (14:45)
[2016-05-10 14:54] LABS: MEAN PLATELET VOLUME 8.7 FL (7.4-10.4); RED BLOOD COUNT 2.65 10^6/uL (4.35-5.85); RED CELL DISTRIBUTION WIDTH 16.2 % (10.0-14.5); WHITE BLOOD COUNT 16.8 10^3/uL (4.3-11.0)
--- NOTE | 2016-05-10 15:01 | Inpatient Code Blue ---
General Chief Complaint: Dizziness/Syncope Stated Complaint: Patient felt dizzy and sat down History of Present Illness Time seen by provider: 13:15 Allergies and Home Medications Allergies Coded Allergies: No Known Drug Allergies (Unverified , 05/06/16) Home Medications 0.9 % Sodium Chloride 2 Ml Syringe, 10 ML IV Q12H, (Reported) Acetaminophen 500 Mg Tablet, 1,000 MG PO Q8H PRN for PAIN/FEVER, (Reported) TAKES 2 (500MG) TABLETS Albuterol Sulfate 2.5 Mg/3 Ml Vial.neb, 2.5 MG NEB Q4H PRN for PNEUMONIA, ( Reported) Ascorbic Acid 1,000 Mg Tablet, 1,000 MG PO DAILY, (Reported) Calcium Acetate 667 Mg Capsule, 1,334 MG PO TID, (Reported) TAKES 2 (667MG) CAPSULES Docusate Sodium 100 Mg Capsule, 100 MG PO DAILY, (Reported) Escitalopram Oxalate 10 Mg Tablet, 10 MG PO DAILY, (Reported) Ferrous Sulfate 325 Mg Tablet, 325 MG PO BID, (Reported) Furosemide 40 Mg Tablet, 40 MG PO DAILY, (Reported) Guaifenesin 600 Mg Tab.er.12h, 600 MG PO BID, (Reported) Heparin Sodium,Porcine/Pf 1,000 Unit/1 Ml Vial, 5,000 UNIT SC Q12H, (Reported) Insulin Determir 1,000 Units/10 Ml Soln, 20 UNITS SQ HS, (Reported) Insulin Lispro 100 Unit/1 Ml Vial, 10 UNIT SQ 0700,1200, (Reported) Insulin Lispro 100 Unit/1 Ml Vial, 13 UNIT SQ 1700, (Reported) Insulin Lispro 100 Unit/1 Ml Vial, SQ 1200,1700, (Reported) 151-180= 1 UNIT 181-210= 2 UNITS 211-240= 3 UNITS 241-270= 4 UNITS 271-300= 5 UNITS 301-330= 6 UNITS 331-360= 7 UNITS 361-390= 8 UNITS 391-420= 9 UNITS <60 AND >421 NOTIFY PHYSICIAN Melatonin/Pyridoxine 1 Each Tablet, 3 MG PO HS, (Reported) Ondansetron HCl 4 Mg Tab, 4 MG PO Q8H PRN for NAUSEA, (Reported) Silver Sulfadiazine 400 Gm Cream..g., TP DAILY PRN for WOUND CARE, (Reported) LEFT FOOT Silver Sulfadiazine 400 Gm Cream..g., TP DAILY, (Reported) LEFT FOOT Simethicone 80 Mg Tab.chew, 80 MG PO ACHS PRN for STOMACH PAINS, (Reported) Physical Exam Vital Signs Vital Sign - Last 12Hours 05/06/16 05/06/16 05/06/16 05/10/16 08:28 12:29 12:35 14:18 Temp 95.9 Pulse 88 Resp 22 B/P (MAP) 126/92 Pulse Ox 96 O2 Delivery Nasal Cannula O2 Flow Rate 2.00 FiO2 100 Capillary Refill : Less Than 3 Seconds Date of ETT Placement: May 10, 2016 Time of ETT Placement: 1320 Tube Size: 7.00 Progress 1310 Code blue call 1311 CPR started and epi given 1315 NS bolus started and shock given, I arrived in room with Dr Gaxiola running the code 1318 Amiodarone started, Rate V tach 150, palpable pulse 1322 Patient Intubated 1324 No pulse, Epi #2 given 1326 Started on Dopamin gtts at [address] Bourne 1328 V tach rhythm 1334 D50 Amp and Insulin 20 units given for presumed Hyperkalemia 1338 Versed 2 mg given, patient grabbing at the tube 1340 labs drawn, ABG drawn, getting patient ready to transfer to ICU 1352 Patient transported to ICU with Dr Cadena and Dr Contreras present Progress/Results/Core Measures Results/Orders Lab Results Laboratory Tests Test 05/06/16 08:40 05/06/16 08:45 05/06/16 16:05 05/06/16 22:13 Range/Units Urine Color YELLOW Urine Clarity VERY CLOUDY H Urine pH 5 5-9 Urine Specific [place] 1.015 L 1.016-1.022 Urine Protein 3+ H NEGATIVE Urine Glucose (UA) NEGATIVE NEGATIVE Urine Ketones NEGATIVE NEGATIVE Urine Nitrite NEGATIVE NEGATIVE Urine Bilirubin NEGATIVE NEGATIVE Urine Urobilinogen NORMAL NORMAL MG/DL Urine Leukocyte Esterase 3+ H NEGATIVE Urine RBC (Auto) 4+ H NEGATIVE Urine RBC 25-50 H /HPF Urine WBC >100 H /HPF Urine Squamous Epithelial Cells 2-5 /HPF Urine Crystals NONE /LPF Urine Bacteria FEW H /HPF Urine Casts PRESENT /LPF Urine Hyaline Casts 0-2 H /LPF Urine Mucus NEGATIVE /LPF Urine Culture Indicated YES Magnesium Level 2.5 H 1.8-2.4 MG/DL Troponin I < 0.30 <0.30 NG/ML B-Type Natriuretic Peptide 921.9 H <100.0 PG/ML White Blood Count 8.0 4.3-11.0 10^3/uL Red Blood Count 2.60 L 4.35-5.85 10^6/uL Hemoglobin 7.3 L 11.5-16.0 G/DL Hematocrit 23 L 35-52 % Mean Corpuscular Volume 89 80-99 FL Mean Corpuscular Hemoglobin 28 25-34 PG Mean Corpuscular Hemoglobin Concent 32 32-36 G/DL Red Cell Distribution Width 15.5 H 10.0-14.5 % Platelet Count 220 130-400 10^3/uL Mean Platelet Volume 8.9 7.4-10.4 FL Neutrophils (%) (Auto) 77 H 42-75 % Lymphocytes (%) (Auto) 16 12-44 % Monocytes (%) (Auto) 6 0-12 % Eosinophils (%) (Auto) 1 0-10 % Basophils (%) (Auto) 0 0-10 % Neutrophils # (Auto) 6.2 1.8-7.8 X 10^3 Lymphocytes # (Auto) 1.3 1.0-4.0 X 10^3 Monocytes # (Auto) 0.5 0.0-1.0 X 10^3 Eosinophils # (Auto) 0.1 0.0-0.3 10^3/uL Basophils # (Auto) 0.0 0.0-0.1 10^3/uL Sodium Level 132 L 135-145 MMOL/L Potassium Level 6.3 H 3.6-5.0 MMOL/L Chloride Level 101 98-107 MMOL/L Carbon Dioxide Level 22 21-32 MMOL/L Anion Gap 9 5-14 MMOL/L Blood Urea Nitrogen 70 H 7-18 MG/DL Creatinine 3.14 H 0.60-1.30 MG/DL Estimat Glomerular Filtration Rate 15 BUN/Creatinine Ratio 22 Glucose Level 72 70-105 MG/DL Lactic Acid Level 0.94 0.50-2.00 MMOL/L Calcium Level 8.7 8.5-10.1 MG/DL Total Bilirubin 0.3 0.1-1.0 MG/DL Aspartate Amino Transf (AST/SGOT) 18 5-34 U/L Alanine Aminotransferase (ALT/SGPT) 11 0-55 U/L Alkaline Phosphatase 128 40-136 U/L Total Protein 7.7 6.4-8.2 G/DL Albumin 2.7 L 3.2-4.5 G/DL Glucometer 158 H 228 H 70-110 MG/DL Test 05/07/16 04:20 05/07/16 09:36 05/07/16 14:41 05/07/16 19:24 Range/Units White Blood Count 8.2 4.3-11.0 10^3/uL Red Blood Count 2.66 L 4.35-5.85 10^6/uL Hemoglobin 7.4 L 11.5-16.0 G/DL Hematocrit 24 L 35-52 % Mean Corpuscular Volume 89 80-99 FL Mean Corpuscular Hemoglobin 28 25-34 PG Mean Corpuscular Hemoglobin Concent 31 L 32-36 G/DL Red Cell Distribution Width 15.7 H 10.0-14.5 % Platelet Count 249 130-400 10^3/uL Mean Platelet Volume 8.9 7.4-10.4 FL Neutrophils (%) (Auto) 76 H 42-75 % Lymphocytes (%) (Auto) 17 12-44 % Monocytes (%) (Auto) 6 0-12 % Eosinophils (%) (Auto) 1 0-10 % Basophils (%) (Auto) 0 0-10 % Neutrophils # (Auto) 6.3 1.8-7.8 X 10^3 Lymphocytes # (Auto) 1.4 1.0-4.0 X 10^3 Monocytes # (Auto) 0.5 0.0-1.0 X 10^3 Eosinophils # (Auto) 0.1 0.0-0.3 10^3/uL Basophils # (Auto) 0.0 0.0-0.1 10^3/uL Sodium Level 132 L 135-145 MMOL/L Potassium Level 6.6 *H 3.6-5.0 MMOL/L Chloride Level 102 98-107 MMOL/L Carbon Dioxide Level 22 21-32 MMOL/L Anion Gap 8 5-14 MMOL/L Blood Urea Nitrogen 72 H 7-18 MG/DL Creatinine 3.06 H 0.60-1.30 MG/DL Estimat Glomerular Filtration Rate 15 BUN/Creatinine Ratio 24 Glucose Level 128 H 70-105 MG/DL Calcium Level 8.3 L 8.5-10.1 MG/DL Total Bilirubin 0.3 0.1-1.0 MG/DL Aspartate Amino Transf (AST/SGOT) 14 5-34 U/L Alanine Aminotransferase (ALT/SGPT) 11 0-55 U/L Alkaline Phosphatase 132 40-136 U/L Total Protein 7.6 6.4-8.2 G/DL Albumin 2.6 L 3.2-4.5 G/DL Glucometer 212 H 135 H 113 H 70-110 MG/DL Test 05/08/16 05:10 05/08/16 05:36 05/08/16 11:06 05/08/16 14:25 Range/Units White Blood Count 7.5 4.3-11.0 10^3/uL Red Blood Count 2.58 L 4.35-5.85 10^6/uL Hemoglobin 7.0 L 11.5-16.0 G/DL Hematocrit 23 L 35-52 % Mean Corpuscular Volume 90 80-99 FL Mean Corpuscular Hemoglobin 27 25-34 PG Mean Corpuscular Hemoglobin Concent 30 L 32-36 G/DL Red Cell Distribution Width 15.7 H 10.0-14.5 % Platelet Count 244 130-400 10^3/uL Mean Platelet Volume 8.6 7.4-10.4 FL Neutrophils (%) (Auto) 75 42-75 % Lymphocytes (%) (Auto) 18 12-44 % Monocytes (%) (Auto) 6 0-12 % Eosinophils (%) (Auto) 1 0-10 % Basophils (%) (Auto) 0 0-10 % Neutrophils # (Auto) 5.7 1.8-7.8 X 10^3 Lymphocytes # (Auto) 1.4 1.0-4.0 X 10^3 Monocytes # (Auto) 0.5 0.0-1.0 X 10^3 Eosinophils # (Auto) 0.1 0.0-0.3 10^3/uL Basophils # (Auto) 0.0 0.0-0.1 10^3/uL Absolute Reticulocyte Count 92 H 24-90 10e9/L Percent Reticulocyte Count 3.55 H 0.50-2.40 % Sodium Level 131 L 135-145 MMOL/L Potassium Level 6.2 H 3.6-5.0 MMOL/L Chloride Level 102 98-107 MMOL/L Carbon Dioxide Level 23 21-32 MMOL/L Anion Gap 6 5-14 MMOL/L Blood Urea Nitrogen 80 H 7-18 MG/DL Creatinine 3.29 H 0.60-1.30 MG/DL Estimat Glomerular Filtration Rate 14 BUN/Creatinine Ratio 24 Glucose Level 76 70-105 MG/DL Calcium Level 8.3 L 8.5-10.1 MG/DL Iron Level 20 L 35-180 ug/dL Total Iron Binding Capacity 226 L 280-380 ug/dL Unsaturated Iron Binding Capacity 206 55-450 ug/dL Transferrin % Saturation 9 L 15-50 % Ferritin 173.0 H 15.0-150.0 ng/mL Vitamin B12 Level 617 101-4289 pg/mL Glucometer 81 182 H 232 H 70-110 MG/DL Test 05/08/16 19:59 05/09/16 05:09 05/09/16 06:47 05/09/16 10:09 Range/Units Glucometer 201 H 93 191 H 70-110 MG/DL White Blood Count 8.9 4.3-11.0 10^3/uL Red Blood Count 2.59 L 4.35-5.85 10^6/uL Hemoglobin 7.1 L 11.5-16.0 G/DL Hematocrit 23 L 35-52 % Mean Corpuscular Volume 89 80-99 FL Mean Corpuscular Hemoglobin 27 25-34 PG Mean Corpuscular Hemoglobin Concent 31 L 32-36 G/DL Red Cell Distribution Width 15.7 H 10.0-14.5 % Platelet Count 318 130-400 10^3/uL Mean Platelet Volume 8.6 7.4-10.4 FL Neutrophils (%) (Auto) 75 42-75 % Lymphocytes (%) (Auto) 16 12-44 % Monocytes (%) (Auto) 7 0-12 % Eosinophils (%) (Auto) 2 0-10 % Basophils (%) (Auto) 0 0-10 % Neutrophils # (Auto) 6.7 1.8-7.8 X 10^3 Lymphocytes # (Auto) 1.4 1.0-4.0 X 10^3 Monocytes # (Auto) 0.7 0.0-1.0 X 10^3 Eosinophils # (Auto) 0.2 0.0-0.3 10^3/uL Basophils # (Auto) 0.0 0.0-0.1 10^3/uL Sodium Level 131 L 135-145 MMOL/L Potassium Level 6.0 H 3.6-5.0 MMOL/L Chloride Level 101 98-107 MMOL/L Carbon Dioxide Level 22 21-32 MMOL/L Anion Gap 8 5-14 MMOL/L Blood Urea Nitrogen 85 H 7-18 MG/DL Creatinine 3.23 H 0.60-1.30 MG/DL Estimat Glomerular Filtration Rate 14 BUN/Creatinine Ratio 26 Glucose Level 47 *L 70-105 MG/DL Calcium Level 8.3 L 8.5-10.1 MG/DL Test 05/09/16 15:54 05/09/16 22:34 05/10/16 05:05 05/10/16 06:09 Range/Units Glucometer 214 H 200 H 59 *L 70-110 MG/DL White Blood Count 7.4 4.3-11.0 10^3/uL Red Blood Count 2.56 L 4.35-5.85 10^6/uL Hemoglobin 7.1 L 11.5-16.0 G/DL Hematocrit 23 L 35-52 % Mean Corpuscular Volume 90 80-99 FL Mean Corpuscular Hemoglobin 28 25-34 PG Mean Corpuscular Hemoglobin Concent 31 L 32-36 G/DL Red Cell Distribution Width 15.9 H 10.0-14.5 % Platelet Count 295 130-400 10^3/uL Mean Platelet Volume 8.6 7.4-10.4 FL Neutrophils (%) (Auto) 75 42-75 % Lymphocytes (%) (Auto) 16 12-44 % Monocytes (%) (Auto) 7 0-12 % Eosinophils (%) (Auto) 2 0-10 % Basophils (%) (Auto) 0 0-10 % Neutrophils # (Auto) 5.5 1.8-7.8 X 10^3 Lymphocytes # (Auto) 1.2 1.0-4.0 X 10^3 Monocytes # (Auto) 0.5 0.0-1.0 X 10^3 Eosinophils # (Auto) 0.1 0.0-0.3 10^3/uL Basophils # (Auto) 0.0 0.0-0.1 10^3/uL Sodium Level 133 L 135-145 MMOL/L Potassium Level 5.9 H 3.6-5.0 MMOL/L Chloride Level 102 98-107 MMOL/L Carbon Dioxide Level 21 21-32 MMOL/L Anion Gap 10 5-14 MMOL/L Blood Urea Nitrogen 85 H 7-18 MG/DL Creatinine 3.11 H 0.60-1.30 MG/DL Estimat Glomerular Filtration Rate 15 BUN/Creatinine Ratio 27 Glucose Level 45 *L 70-105 MG/DL Calcium Level 8.3 L 8.5-10.1 MG/DL Test 05/10/16 06:29 05/10/16 07:00 05/10/16 09:42 05/10/16 13:19 Range/Units Glucometer 61 L 100 207 H 70-110 MG/DL White Blood Count 16.8 H 4.3-11.0 10^3/uL Red Blood Count 2.65 L 4.35-5.85 10^6/uL Hemoglobin 7.3 L 11.5-16.0 G/DL Hematocrit 24 L 35-52 % Mean Corpuscular Volume 92 80-99 FL Mean Corpuscular Hemoglobin 28 25-34 PG Mean Corpuscular Hemoglobin Concent 30 L 32-36 G/DL Red Cell Distribution Width 16.2 H 10.0-14.5 % Platelet Count 271 130-400 10^3/uL Mean Platelet Volume 8.7 7.4-10.4 FL Sodium Level 131 L 135-145 MMOL/L Potassium Level 7.4 *H 3.6-5.0 MMOL/L Chloride Level 103 98-107 MMOL/L Carbon Dioxide Level 17 L 21-32 MMOL/L Anion Gap 11 5-14 MMOL/L Blood Urea Nitrogen 83 H 7-18 MG/DL Creatinine 3.18 H 0.60-1.30 MG/DL Estimat Glomerular Filtration Rate 15 BUN/Creatinine Ratio 26 Glucose Level 109 H 70-105 MG/DL Calcium Level 8.3 L 8.5-10.1 MG/DL B-Type Natriuretic Peptide 1375.5 H <100.0 PG/ML Test 05/10/16 13:46 05/10/16 15:15 Range/Units Blood Gas Puncture Site LEFT RADIAL Blood Gas Patient Temperature 95.7 Arterial Blood pH 7.12 *L 7.37-7.43 Arterial Blood Partial Pressure CO2 43 35-45 MMHG Arterial Blood Partial Pressure O2 161 H 79-93 MMHG Arterial Blood HCO3 14 *L 23-27 MMOL/L Arterial Blood Total CO2 15.4 L 21.0-31.0 MMOL/L Arterial Blood Oxygen Saturation 100 94-100 % Arterial Blood Base Excess -13.8 L -2.5-2.5 MMOL/L Kelvin Test YES-POS Blood Gas Ventilator Setting YES Blood Gas Inspired Oxygen 100% Micro Results Microbiology 05/06/16 Blood Culture - Preliminary, Resulted No growth 05/06/16 Blood Culture - Preliminary, Resulted Staph, Coag Neg (Second Helper) 05/06/16 Urine Culture - Final, Complete My Orders Orders - NEERAJ CADENA MD Insulin (Regular) Human (Humulin R (Per (05/06/16 14:30) Admission (Physician Order) (05/06/16 12:35) Code/Resuscitation (05/06/16 12:57) Initiate Admission Nursing Pro .admission (05/06/16 12:57) Isolation Central Supply Req (05/06/16 12:57) Telemetry (05/06/16 12:57) Vital Signs: Every 4 Hours (05/06/16 12:57) Notify Physician (05/06/16 12:57) Cho 60g/M 1snack (16-2000 Jaime) (05/06/16 Lunch) Ns Iv 500 Ml (Sodium Chloride 0.9%) (05/06/16 13:15) Ceftriaxone Injection (Rocephin Injectio (05/07/16 09:00) Sodium Chloride Flush (Catheter Flush Sy (05/06/16 13:15) Sodium Chloride Flush (Catheter Flush Sy (05/06/16 14:00) Intake & Output 06,14,22 (05/06/16 13:03) Rt Request For Service (05/06/16 13:03) Sequential Compression Device 08,20 (05/06/16 13:03) Bedrest With Brp With [place] (05/06/16 13:03) Cbc With Automated Diff (05/07/16 05:00) Comprehensive Metabolic Panel (05/07/16 05:00) Accucheck 2 Hr Postpr & Fastin 0930,1430,1930 (05/06/16 13:16) Acetaminophen Tablet (Tylenol Tablet) (05/06/16 20:45) Docusate Sodium Capsule (Colace Capsule) (05/07/16 09:00) Ferrous Sulfate Tablet (Feosol Tablet) (05/06/16 21:00) Silver Sulfadiazine 400 Gm (Ssd 1% 400 G (05/06/16 20:45) (Nf) Escitalopram Oxalate (Lexapro) (05/07/16 09:00) (Nf) Heparin Sodium,Porcine/Pf (Heparin (05/06/16 20:45) (Nf) Insulin Lispro (Humalog) (05/07/16 07:00) (Nf) Insulin Lispro (Humalog) (05/07/16 17:00) (Nf) Melatonin/Pyridoxine (Melatonin 3 M (05/06/16 21:00) Insulin Determir (Per Unit) (Levemir (Pe (05/07/16 21:00) Insulin Aspart (Novolog) (Novolog (Charg (05/07/16 07:00) Insulin Aspart (Novolog) (Novolog (Charg (05/07/16 17:00) Citalopram Tablet (Celexa Tablet) (05/07/16 09:00) Heparin Injection (Heparin Injection) (05/07/16 09:00) Furosemide Injection (Lasix Injection) (05/07/16 05:30) Melatonin Tablet (Melatonin Tablet) (05/07/16 21:00) Cbc With Automated Diff (05/08/16 05:00) Basic Metabolic Panel (05/08/16 05:00) Iron Tibc %Sat & Ferritin (05/08/16 05:00) Furosemide Injection (Lasix Injection) (05/08/16 09:00) Fluid Restriction (05/07/16 11:08) No Fluid On Trays (05/07/16 Lunch) Reticulocyte Count (05/08/16 05:00) Vitamin B 12 (05/08/16 05:00) Red Blood Cell Folate (05/08/16 05:00) Albuterol/Ipra Inhalation Soln (Duoneb I (05/07/16 19:00) Svn Sm Volume Nebulizer Rt-Rfs (05/07/16 18:49) Furosemide Injection (Lasix Injection) (05/07/16 19:00) Furosemide Injection (Lasix Injection) (05/07/16 18:58) Cephalexin Capsule (Keflex Capsule) (05/08/16 13:00) Cbc With Automated Diff (05/09/16 05:00) Basic Metabolic Panel (05/09/16 05:00) Iron Sucrose Injection (Venofer Injectio (05/09/16 10:00) Consult Physician (05/09/16 10:54) Cbc With Automated Diff (05/10/16 05:00) Basic Metabolic Panel (05/10/16 05:00) Iron Sucrose Injection (Venofer Injectio (05/10/16 11:00) Insulin Aspart (Novolog) (Novolog (Charg (05/10/16 17:00) Rt Request For Service (05/10/16 12:02) BNP (05/10/16 13:30) Albuterol Pre-Mix Nebs (Rt) (Proventil P (05/10/16 13:32) Lorazepam Injection (Ativan Injection) (05/10/16 13:47) Transfer To Intensive Care Uni (05/10/16 13:52) Transfer - Room Transfer (05/10/16 13:52) Sodium Bicarbonate 8.4% Syr (Sodium Bica (05/10/16 13:59) Sputum Culture (05/10/16 14:04) Ns Iv 1000 Ml (Sodium Chloride 0.9%) (05/10/16 14:04) Norepinephrine (Levophed) (05/10/16 14:16) D5w 250 Ml (Ivpb) (Dextrose 5% Water Iv (05/10/16 14:17) 1/2 Ns Iv Solution... W/Sodium Bicarbona (05/10/16 14:45) Sodium Polystyrene Sulfonate (Kayexalate (05/10/16 14:45) Basic Metabolic Panel (05/10/16 14:40) Cbc No Diff (05/10/16 14:40) Vital Signs/I&O Vital Sign - Last 12Hours 05/06/16 05/06/16 05/06/16 05/06/16 08:28 12:29 12:35 15:36 Temp 95.9 97.3 Pulse 88 85 80 84 Resp 22 18 16 B/P (MAP) 126/92 120/63 Pulse Ox 96 96 100 O2 Delivery Nasal Cannula O2 Flow Rate 2.00 2.00 05/06/16 05/06/16 05/06/16 05/06/16 16:00 16:42 19:00 20:55 Temp 97.6 97.6 Pulse 87 85 91 Resp 18 20 B/P (MAP) 110/78 108/61 Pulse Ox 100 96 O2 Delivery Nasal Cannula Nasal Cannula Nasal Cannula O2 Flow Rate 2.00 2.00 2.00 05/06/16 05/07/16 05/07/16 05/07/16 21:05 00:25 01:17 04:10 Temp 96.5 96.2 Pulse 89 84 90 Resp B/P (MAP) 122/78 110/68 Pulse Ox 96 100 98 O2 Delivery Nasal Cannula Nasal Cannula Nasal Cannula O2 Flow Rate 2.00 2.00 2.00 05/07/16 05/07/16 05/07/16 05/07/16 08:00 08:49 09:01 12:00 Temp 96.6 97.2 Pulse 94 99 Resp 20 B/P (MAP) 125/62 112/65 Pulse Ox 96 93 95 O2 Delivery Nasal Cannula Nasal Cannula Nasal Cannula O2 Flow Rate 2.00 2.00 2.00 2.00 05/07/16 05/07/16 05/07/16 05/07/16 16:51 19:00 19:00 19:17 Temp 97.8 Pulse 89 97 81 Resp 20 B/P (MAP) 118/70 Pulse Ox 99 97 O2 Delivery Nasal Cannula O2 Flow Rate 2.00 2.00 05/07/16 05/07/16 05/08/16 05/08/16 20:10 21:00 00:00 01:00 Temp 97.2 96.4 Pulse 98 88 83 Resp 19 B/P (MAP) 125/62 117/56 Pulse Ox 98 95 99 O2 Delivery Nasal Cannula Nasal Cannula Nasal Cannula O2 Flow Rate 2.00 2.00 2.00 05/08/16 05/08/16 05/08/16 05/08/16 02:21 04:00 07:00 08:20 Temp 98.2 97.1 Pulse 87 92 95 Resp 20 B/P (MAP) 121/64 104/58 Pulse Ox 98 98 98 O2 Delivery Nasal Cannula Nasal Cannula O2 Flow Rate 2.00 2.00 2.00 05/08/16 05/08/16 05/08/16 05/08/16 09:00 11:31 12:00 13:00 Temp 97.0 Pulse 96 95 Resp 12 B/P (MAP) 92/53 Pulse Ox 91 98 O2 Delivery Nasal Cannula Nasal Cannula O2 Flow Rate 2.00 2.00 2.00 05/08/16 05/08/16 05/08/16 05/08/16 16:55 19:00 20:05 21:00 Temp 97.4 96.7 Pulse 94 95 98 Resp 20 20 B/P (MAP) 116/54 99/70 Pulse Ox 99 99 O2 Delivery Nasal Cannula Nasal Cannula Nasal Cannula O2 Flow Rate 2.00 2.00 2.00 05/09/16 05/09/16 05/09/16 05/09/16 00:00 00:57 02:17 04:04 Temp 96.3 97.6 Pulse 89 88 84 Resp B/P (MAP) 96/60 101/64 Pulse Ox 98 95 96 O2 Delivery Nasal Cannula Nasal Cannula O2 Flow Rate 2.00 2.00 2.00 05/09/16 05/09/16 05/09/16 05/09/16 07:02 07:08 08:15 12:00 Temp 96.0 Pulse 100 95 Resp 24 B/P (MAP) 119/83 Pulse Ox 99 95 O2 Delivery Nasal Cannula Nasal Cannula O2 Flow Rate 2.00 2.00 2.00 05/09/16 05/09/16 05/09/16 05/09/16 13:38 15:55 19:00 19:30 Temp 96.3 96.6 Pulse 99 99 92 96 Resp 21 B/P (MAP) 130/67 121/80 Pulse Ox 97 98 O2 Delivery Nasal Cannula Nasal Cannula O2 Flow Rate 2.00 2.00 05/09/16 05/10/16 05/10/16 05/10/16 21:00 00:00 00:20 01:00 Temp 97.1 Pulse 97 95 Resp 18 B/P (MAP) 106/52 Pulse Ox 100 96 O2 Delivery Nasal Cannula Nasal Cannula O2 Flow Rate 2.00 2.00 2.00 05/10/16 05/10/16 05/10/16 05/10/16 04:00 07:00 08:00 08:00 Temp 96.9 96.6 Pulse 92 99 100 Resp 18 20 B/P (MAP) 118/80 95/56 Pulse Ox 99 98 O2 Delivery Nasal Cannula Nasal Cannula Nasal Cannula O2 Flow Rate 2.00 2.00 2.00 05/10/16 14:18 Pulse 98 Resp 16 Pulse Ox 83 FiO2 100 Intake and Output 05/10/16 00:00 Intake Total 765 ml Output Total 500 ml Balance 265 ml Blood Pressure Mean: 69 Point of Care Testing Finger Stick Blood Glucose: 207 Blood Glucose Action Taken: RN Notified Diagnostic Imaging Diagonstic Imaging: Xray Plain Films/CT/US/NM/MRI: chest Time of Consult: 11:20 Clinical Quality Measures DVT/VTE Risk/Contraindication: Risk Factor Score Per Nursin RFS Level Per Nursing on Admit: 4+=Very High NEERAJ CADENA MD May 10, 2016 15:01
[2016-05-10] MEDS ORDERED: VASOPRESSIN INJECTION 20 UNIT in NS (IVPB) 50 ML IV SCH (15:04)
[2016-05-10] MEDS ORDERED: NS (IVPB) 50 ML ONE (15:04)
[2016-05-10] MEDS ORDERED: VASOPRESSIN INJECTION 20 UNIT/ML VIAL ONE (15:04)
[2016-05-10 15:07] LABS: CALCIUM 8.3 MG/DL (8.5-10.1); CREATININE SERUM 3.18 MG/DL (0.60-1.30)
[2016-05-10 15:11] LABS: POTASSIUM 7.4 MMOL/L (3.6-5.0)
--- NOTE | 2016-05-10 15:33 | Discharge Summary ---
Diagnosis/Chief Complaint Date of Admission May 06, 2016 at 11:44 Date of Discharge Transferred 05/10/16 Admission Diagnosis Admission Diagnosis Acute on Chronic Renal Failure Post Code Acute Respiratory Failure Hyperkalemia Insulin Dependent DM Lower extremity Edema Discharge Diagnosis See Above Chief Complaint/HPI Chief Complaint/HPI 66 yo with multiple co morbidities that was sent from [place] after having syncopal episode when she was headed down to lunch yesterday afternoon. Patient states that she remembers heading down to lunch and then woke up on the floor. Denies any symptoms prior to passing out. Denies racing heart, dizziness or pain. Patient was also found to have elevated Cr and potassium when she arrived at the ER. This AM states that she is feeling well and at her baseline. Tolerating po diet. States that she is peeing more then her normal. Discharge Summary-Simple/Stand Procedures CPR CXR for tube placement, tube pulled back, Line is malpositioned Consultations Internal Medicine Dr Contreras: Vent management Discharge Physical Examination Allergies: Coded Allergies: No Known Drug Allergies (Unverified , 05/06/16) Vitals & I&Os Vital Sign - Last 12Hours Date Time Temp Pulse Resp B/P (MAP) Pulse Ox O2 Delivery O2 Flow Rate FiO2 05/10/16 14:18 98 16 83 100 05/10/16 08:00 Nasal Cannula 2.00 05/10/16 08:00 96.6 95/56 Intake and Output 05/10/16 00:00 Intake Total 765 ml Output Total 500 ml Balance 265 ml General Appearance: Other (Sedated and intubated) HEENT: Mucous Memb Moist/[place] Respiratory: Other (decrease lung sounds, + crackles, no wheezing) Cardiovascular: Other (Irregular rhythm) Extremities: Other (3+ pitting edema bilaterally) Neuro: Other (Unresponsive and sedated) Hospital Course See final discharge diagnosis. Radiology Reviewed Date of Exam: 05/06/16 CHEST 1 VIEW, AP/PA ONLY EXAMINATION: Portable upright radiograph of the chest. INDICATION: Syncope. Comparison to 04/05/16. FINDINGS: The heart size is moderately enlarged. There is severe cardiomegaly. Bilateral perihilar infiltrates are seen may relate to pulmonary edema. There is bilateral effusions small on the right side and moderate to large on the left. The left lower lobe is obscured. There is a tunneled central line through the right IJ with the tip at the cavoatrial junction. IMPRESSION: Cardiomegaly with bilateral perihilar infiltrates and effusions worse on the left side. This may relate to asymmetric pulmonary edema with or without superimposed infection. Correlate clinically. Discussion & Recommendations 66 yo F with known CKD that was admitted for mild elevation in Cr and hyperkalemia. Patient did well for 3 days with labs trending down. Patient denied any dizziness or problems until 05/10/16. She was feeling well and was ready to go home. She was then doing her oxygen supplementation testing when she told the RT that she was feeling dizzy. She was able to make it to the chair and sat down and became unresponsive and was pulseless. Code was called and patient had ROS after epi, shock x2 and amiodarone. She was then transferred to ICU intubated. The decision was made to transfer patient for critical care and possible evaluation for cooling as well as emergent hemodialysis. Her sister who is her DPOA was at the hospital at the time of transfer. Discharge Condition at discharge Critical Instructions to patient/family Please see electonic discharge instructions given to patient. Discharge Medications Reviewed and agree with Discharge Medication list on patient's Discharge Instruction sheet Clinical Quality Measures DVT/VTE Risk/Contraindication: Risk Factor Score Per Nursin RFS Level Per Nursing on Admit: 4+=Very High Copy Copies To 1: Richy SANCHEZ HOLLY R MD May 10, 2016 15:33
[2016-05-10 15:38] LABS: CALCIUM 11.9 MG/DL (8.5-10.1); CREATININE SERUM 3.27 MG/DL (0.60-1.30)
--- NOTE | 2016-05-10 15:54 | Diagnostic Imaging Report ---
INDICATION: Tube placement. COMPARISON: May 06, 2016. TECHNIQUE: Single frontal radiograph of the chest dated May 10, 2016. FINDINGS: Interval placement of an endotracheal tube. The distal tip appears to lie just above the dennis by approximately 6 mm. This should be retracted 2 cm for optimal positioning. Interval placement of an enteric catheter with the distal tip extending inferior to the [id number]-mlga, which is inferior to the level of the diaphragm. Right IJ central venous catheter is present. Previously, the catheter was seen extending inferiorly towards the heart. Currently, this catheter extends superiorly into the neck with the distal tip not visualized. The cardiac silhouette is enlarged, though stable. Central pulmonary vascular congestion is again seen. Moderate sized left-sided pleural-parenchymal opacity, appearing minimally improved from the prior examination. Patchy opacities are again seen within the right lung, appearing stable from the prior examination. Trace right pleural effusion. No pneumothorax. Osseous structures appear stable. IMPRESSION: 1. Right IJ central venous catheter is present. However, the catheter now appears to extend superiorly into the neck. Recommend removal and replacement. 2. Endotracheal tube is low lying, recommend retraction of approximately 2 cm. 3. Cardiomegaly with pulmonary vascular congestion. 4. Moderate left basilar pleural-parenchymal opacity, slightly improved from the prior examination. This is felt to relate to a combination of pleural fluid with adjacent atelectasis and/or infiltrate. 5. Stable patchy opacities throughout the right lung with associated small right pleural effusion. Report was called to patient's nurse at [facility] and tubes have already been pulled back.shania 3:51 p.m. Dictated by: Dictated on workstation # [id number]
--- NOTE | 2016-05-10 16:29 | Diagnostic Imaging Report ---
INDICATION: Endotracheal tube readjustment. COMPARISON: Radiographs of the chest from same day. TECHNIQUE: 2 radiographs of the chest dated May 10, 2016 FINDINGS: Endotracheal tube is identified, approximately 2 cm above the level of the dennis. Enteric catheter is again identified extending inferior to the [id number]-wn-dcms. Right IJ central venous catheter is again identified, though this extends superior into the neck, though the distal tip is not included within the ibfju-ci-oipm. The cardiac silhouette is enlarged, though stable. Left basilar pleural-parenchymal opacity and right sided patchy pulmonary opacities appear stable. No pneumothorax. Osseous structures are stable. IMPRESSION: Right IJ central venous catheter extending superiorly into the neck, though the distal tip is not included within the fpzyw-iw-gwjn. Recommend replacement. Endotracheal tube is present approximately 2 cm above the level of the dennis. Otherwise, stable examination. Report was called to Dr. Contreras at 4:18 p.m., by shania (for ). Dictated by: Dictated on workstation # [id number]
[2016-05-10] MEDS ORDERED: inSUlin ASPART (NovoLOG) 1 UNIT/0.01 ML (CHARGE PER UNIT) SC SCH (17:00)
[2016-05-10] MEDS ORDERED: SODIUM BICARB 8.4% 50 MEQ/50 ML (ABBOTT) SYR IV ONE (18:30)
--- OUTSIDE RECORDS SUMMARY | 2016-05-20 20:34 | XMS REPORT | Continuity of Care Document ---
Author Author [facility] Organization [facility] Address Unknown Phone Unavailable Care Team Providers Care Investment Recovery Technician Name Role Phone Coral Viveros PCP [phone] Source Comments Some departments are not documenting in the electronic medical record. If you do not see the information that you expected, contact Release of Information in the Health Information Management department at [phone] for further assistance in locating additional records.[facility] Active Allergies and Adverse Reactions [...] Health Maintenance Due Date Last Done Comments Hepatitis C Screening 1950 Physical (Comprehensive) 1957 Exam Pertussis Vaccine 1961 Tetanus Vaccine 1967 Dilated Eye Exam 01/29/1968 Foot Exam 01/29/1968 Microalbumin 01/29/1968 Breast Cancer Screening 1990 Colorectal Cancer 01/29/2000 Screening Shingles Vaccine 2010 Hba1c 02/28/2014 08/28/2013, 12/28/2012, 12/06/2011 Additional history exists Osteoporosis Screening 2015 Prevnar/Pneumovax (#1) 2015 Influenza Vaccine 10/10/2016 Results from Last 3 Months Not on file
--- OUTSIDE RECORDS SUMMARY | 2016-05-20 20:37 | XMS REPORT ---
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 Active Problem Type 2 diabetes mellitus with hyperglycemia, without long-term current use of insulin E11.65 Active Problem Non-pressure chronic ulcer of other part of right foot with unspecified severity L97.519 Active Problem History of rectal bleeding Z87.19 Active Problem Chronic obstructive pulmonary disease, unspecified COPD type J44.9 Active Problem Essential hypertension I10 Active Problem Iron deficiency anemia, unspecified iron deficiency anemia type D50.9 Active Medications Medication Code System Code Instructions Start Date End Date Status Dosage Lisinopril-Hydrochlorothiazide [facility] [address]-61 10-12.5 MG Orally Once a day 1 tablet GlipiZIDE [facility] [address]-33 10 mg Orally twice a day 1 tablet Metformin HCl [facility] [address]-65 850 MG Orally twice a day 1 tablet with a meal Results No Known Results Summary Purpose [employer] Submission
--- OUTSIDE RECORDS SUMMARY | 2016-05-20 20:37 | XMS REPORT ---
Author MAICO Clarke [facility] [employer] Address Unknown Phone Unavailable Care Team Providers Care Drilling Inspector Name Role Phone MAICO LINARES CP Unavailable Allergies, Adverse Reactions, Alerts Substance Reaction Event Type N.K.D.A. Info Not Available Non Drug Allergy Problems Problem Type Condition Code Onset Dates Condition Status Problem Essential hypertension I10 Active Problem Iron deficiency anemia, unspecified iron deficiency anemia type D50.9 Active Problem Type 2 diabetes mellitus with hyperglycemia, without long-term current use of insulin E11.65 Active Problem Type 2 diabetes mellitus with foot ulcer E11.621 Active Assessment Infected insect bite, initial encounter W57.XXXA Active Problem History of rectal bleeding Z87.19 Active Problem Chronic obstructive pulmonary disease, unspecified COPD type J44.9 Active Medications Medication Code System Code Instructions Start Date End Date Status Dosage Metformin HCl [facility] [address]-16 850 MG Orally twice a day 1 tablet with a meal Lisinopril-Hydrochlorothiazide [facility] [address]-97 10-12.5 MG Orally Once a day [address] [facility] [address] 500 MG Orally Once a day [address] [facility] [address]-15 100 MG Orally Once a day 1 capsule as needed GlipiZIDE [facility] [address]-17 10 mg Orally twice a day [address] [facility] [address] 325 (65 Fe) MG Orally twice a day [address] [facility] [address]-14 500 MG Orally Twice a day August 30, 2015 September 09, 2015 1 capsule Ipratropium-Albuterol [facility] [address]-92 0.5-2.5 (3) MG/3ML Inhalation 3 times a day 3 ml Procedures Procedure Coding System Code Date Office Visit, Est Pt., Level 3 CPT-4 08206 August 30, 2015 [facility] VISIT ESTABLISHED PATIENT CPT-4 G0467 August 30, 2015 Vital Signs Date/Time: August 30, 2015 Cardiac Monitoring Heart Rate 100 bpm Weight 138.4 lbs Height 58 in Blood Pressure Diastolic 72 mmHg Blood Pressure Systolic 126 mmHg Results No Known Results Summary Purpose [employer] Submission
--- OUTSIDE RECORDS SUMMARY | 2016-05-20 20:37 | XMS REPORT ---
Author JACLYN Doty [facility] [employer] Address Unknown Phone Unavailable Care Team Providers Care Educational Aide Name Role Phone JACLYN KAPADIA CP Unavailable Allergies No Known Allergies Problems Problem Type Condition Code Onset Dates Condition Status Problem Essential hypertension I10 Active Problem Iron deficiency anemia, unspecified iron deficiency anemia type D50.9 Active Problem Type 2 diabetes mellitus with hyperglycemia, without long-term current use of insulin E11.65 Active Problem Type 2 diabetes mellitus with foot ulcer E11.621 Active Problem History of rectal bleeding Z87.19 Active Problem Chronic obstructive pulmonary disease, unspecified COPD type J44.9 Active Medications No Known Medications Results No Known Results Summary Purpose [employer] Submission
--- OUTSIDE RECORDS SUMMARY | 2016-05-20 20:38 | XMS REPORT ---
Author KAT Barragan [facility] [employer] Address Unknown Phone Unavailable Care Team Providers Care Pile Driver Operator Helper Name Role Phone KAT WRIGHT CP Unavailable [...] iron deficiency anemia type D50.9 Active Medications No Known Medications Results No Known Results Summary Purpose [employer] Submission
--- OUTSIDE RECORDS SUMMARY | 2016-05-20 20:38 | XMS REPORT ---
Author KAT Barragan [facility] [employer] Address Unknown Phone Unavailable Care Team Providers Care Bookkeeper Name Role Phone KAT WRIGHT CP Unavailable Allergies, Adverse Reactions, Alerts Substance Reaction Event Type N.K.D.A. 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 [address]-49 10 mg Orally twice a day [address] [facility] [address]-57 850 MG Orally twice a day 1 tablet with a meal Wheel Chair K1 Basic Desk Arm [facility] [address] - for mobility and non weight bearing daily DX: Bilateral DIabetic Foot Ulcers Sep 13, [address] [facility] [address] 325 (65 Fe) MG Orally twice a day [address] [facility] [address]-19 100 MG Orally Once a day 1 capsule as needed Bactrim DS [facility] [address]-05 800-160 MG Orally Twice a day Sep 13, 2015 Sep 23, 2015 1 tablet Lisinopril-Hydrochlorothiazide [facility] [address]-65 10-12.5 MG Orally Once a day 1 tablet Ipratropium-Albuterol [facility] [address]-08 0.5-2.5 (3) MG/3ML Inhalation 3 times a day [address] [facility] [address]-16 100 MG Orally every 12 hrs [address] [facility] [address] 500 MG Orally Once a day 1 tablet Procedures Procedure Coding System Code Date Office Visit, Est Pt., Level 4 CPT-4 87045 Sep 13, 2015 [facility] VISIT ESTABLISHED PATIENT CPT-4 G0467 Sep 13, 2015 Vital Signs Date/Time: Sep 13, 2015 Cardiac Monitoring Heart Rate 90 bpm Weight 140.1 lbs Height 58 in BMI 29.28 Index Blood Pressure Diastolic 64 mmHg Blood Pressure Systolic 114 mmHg Results No Known Results Summary Purpose [employer] Submission
--- OUTSIDE RECORDS SUMMARY | 2016-05-25 04:20 | XMS REPORT | Continuity of Care Document ---
Author Author [facility] Organization [facility] Address Unknown Phone Unavailable Care Team Providers Care Barge Captain Name Role Phone Coral Viveros PCP [phone] Source Comments Some departments are not documenting in the electronic medical record. If you do not see the information that you expected, contact Release of Information in the Health Information Management department at [phone] for further assistance in locating additional records.[facility] Active Allergies and Adverse Reactions No Known [...]
== END 2016-05-10 17:35 | disposition short-term general hospital (02) | DRG 682 ==
LOC: DELPENDDIS → EDUNIT# 08:24 → ER 08:27 → 4TH 11:44 → ICU 05-10 13:52
PROVIDERS: ADMIT Family Medicine; ATTEND Family Medicine
PROC: 5A1935Z Respiratory Ventilation, Less than 24 Consecutive Hours (ICD-10-PCS; principal; 2016-05-10)
DX: N17.9 Acute kidney failure, unspecified (principal); N39.0 Urinary tract infection, site not specified; J96.00 Acute respiratory failure, unspecified whether with hypoxia or hypercapnia; I47.2 Ventricular tachycardia; E87.5 Hyperkalemia; I12.9 Hypertensive chronic kidney disease with stage 1 through stage 4 chronic kidney disease, or unspecified chronic kidney disease; E11.22 Type 2 diabetes mellitus with diabetic chronic kidney disease; N18.4 Chronic kidney disease, stage 4 (severe); D63.1 Anemia in chronic kidney disease; I89.0 Lymphedema, not elsewhere classified; E11.621 Type 2 diabetes mellitus with foot ulcer; L97.901 Non-pressure chronic ulcer of unspecified part of unspecified lower leg limited to breakdown of skin; J44.9 Chronic obstructive pulmonary disease, unspecified; D50.9 Iron deficiency anemia, unspecified; F32.9 Major depressive disorder, single episode, unspecified; Z79.84 Long term (current) use of oral hypoglycemic drugs; Z87.891 Personal history of nicotine dependence
CPT/HCPCS: 36415; 51701; 71010; 80048; 80053; 81000; 82607; 82728; 82747; 82805; 82962; 83540; 83605; 83735; 83880; 84484; 85025; 85027; 85045; 87040; 87070; 87077; 87088; 87205; 93005; 94002; 94640; 94760; 94799; 96365